=== PATIENT | female | born 1955 | race Caucasian/White ===

== ENCOUNTER 2020-08-03 05:55 | Emergency (ER) | payer OTHER, SELFPAY ==
--- NOTE | ~2020-08-03 | CT_ITS ---
EXAMINATION: CTA chest PE protocol DATE: 08/03/2020 07:00 INDICATION: Chest pain and shortness of breath TECHNIQUE: Computed tomography angiography (CTA) of the chest was performed with 100 mL Omnipaque-350 intravenous contrast timed to evaluate the pulmonary arteries. Coronal maximum intensity projection 3D-reconstructions were created by the technologist. The dose-length product (DLP) was 818.87 mGy-cm. Automated exposure control and iterative reconstruction technique were employed. COMPARISON: 03/29/2019, 11/04/2018 FINDINGS: The pulmonary arteries are well-opacified. No pulmonary embolism is identified. There is m ild atelectasis of the lingula and lower lobes. No focal airspace opacity is identified. No pathologi troy enlarged thoracic lymph nodes are identified. The heart size is normal. There is no pleural eff usion or pneumothorax. The gallbladder is surgically absent. There is chronic mild thickening of the left adrenal gland. There is mild thoracic spondylosis. IMPRESSION: 1. No pulmonary embolism. Reviewed, dictated and finalized at location A. IMPRESSION: 1. No pulmonary embolism.
--- NOTE | ~2020-08-03 | XR_ITS ---
EXAMINATION: XR chest 2V DATE: 08/03/2020 06:18 INDICATION: Chest pain TECHNIQUE: PA and lateral views of the chest are obtained. COMPARISON: 09/01/2015 FINDINGS: There is mild atelectasis of the lung bases. There is no pleural effusion or pneumothorax. The cardiomediastinal silhouette is normal. There is mild thoracic spondylosis. Cholecystectomy clips are noted in the right upper quadrant. IMPRESSION: 1. No acute cardiopulmonary abnormality. Reviewed, dictated and finalized at location A.
--- NOTE | ~2020-08-03 | US_ITS ---
EXAMINATION: US venous doppler [facility] DATE: 08/03/2020 07:16 INDICATION: Left lower limb pain and swelling TECHNIQUE: Ayala scale images without and with compression and Doppler images of the left lower extrem ity veins were obtained. COMPARISON: 11/04/2018 FINDINGS: The left common femoral vein, profunda femoral vein, femoral vein, popliteal vein, peroneal trunk, posterior tibial veins, and greater saphenous vein are patent. IMPRESSION: 1. Patent left lower extremity veins. No evidence of deep venous thrombosis. Reviewed, dictated and finalized at location A.
[2020-08-03 06:06] VITALS: BP 160/89; PULSE 81; RESP 17; TEMP 36.7; O2SAT 96
--- NOTE | 2020-08-03 06:06 | ECG_ITS ---
Measurements Intervals [place] Rate: 80 P: 47 NH: 174 QRS: -11 QRSD: 106 T: 17 QT: 388 QTc: 448 Interpretive Statements SINUS RHYTHM CONSIDER INFERIOR INFARCT, AGE INDETERMINATE BASELINE ARTIFACT- I, II, III, AVR, AVL, AVF, V1-V2 ABNORMAL ECG Electronically Signed On 08-03-2020 8:15:28 CDT by Tyson Ca D.O.
[2020-08-03 06:18] LABS: Basophils Percent Auto 0.2 % (0.2-1.2); Eosinophils Absolute Auto 0.2 K/mm3 (0-0.3); Eosinophils Percent Auto 2.3 % (0-4.4); Hematocrit 39.3 % (37.0-47.0); Hemoglobin 12.9 g/dL (12.0-15.0); Immature Granulocyte Absolute 0.02 K/mm3 (0.00-0.031); Immature Granulocyte Percent A 0.3 % (0-0.5); Lymphocytes Absolute Auto 1.64 K/mm3 (0.9-3.2); Lymphocytes Percent Auto 25.6 % (18.3-44.2); Mean Corpuscular HGB Conc 32.8 g/dl (32-36); Mean Corpuscular Hemoglobin 27.2 pg (26-34); Mean Corpuscular Volume 82.9 fl (80-100); Mean Platelet Volume 10.4 fl (7.4-10.4); Monocytes Absolute Auto 0.6 K/mm3 (0.1-0.6); Monocytes Percent Auto 8.8 % (2.6-8.5); Neutrophils Percent Auto 62.8 % (45.5-73.1); Platelet Count Result 274 k/mm3 (150-375); Red Blood Count 4.74 M/mm3 (4.2-5.4); Red Cell Distribution Width 14.3 % (11.5-14.5); White Blood Count 6.4 K/mm3 (4.5-10.0)
[2020-08-03 06:28] LABS: Partial Thromboplastin Time 24.4 SECONDS (22.3-36.8); Prothrombin Time 12.4 Seconds (11.1-14.7)
[2020-08-03 06:30] LABS: Anion Gap 8 mmol/L (8-16); Blood Urea Nitrogen 16 mg/dL (7-17); Calcium 9.8 mg/dL (8.4-10.2); Carbon Dioxide 25 mmol/L (22-30); Chloride 106 mmol/L (98-107); Estimated CRCL calculation 95 ml/min; Estimated Glomerular Filt Rate > 60; Glucose 114 mg/dL (65-105); Potassium 3.7 mmol/L (3.4-5.0); Sodium 139 mmol/L (137-145)
[2020-08-03 06:42] LABS: Troponin I < 0.012 ng/mL (0.000-0.034)
--- NOTE | 2020-08-03 06:43 | ED.EXTPRO ---
HPI - Extremity Problem General Chief complaint: Extremity Problem,Nontraumatic <Francia Barcenas MD - Last Filed: 08/03/20 21:02> Stated complaint: STATES HAS BLOOD CLOT <Francia Barcenas MD - Last Filed: 08/03/20 21:02> Time Seen by Provider: 08/03/20 06:15 <Francia Barcenas MD - Last Filed: 08/03/20 21:02> Source: patient <Francia Barcenas MD - Last Filed: 08/03/20 21:02> Mode of arrival: ambulatory <Francia Barcenas MD - Last Filed: 08/03/20 21:02> Limitations: no limitations <Francia Barcenas MD - Last Filed: 08/03/20 21:02> History of Present Illness HPI Narrative: This patient is a 64 year old female who presents for evaluation of possible DVT to left leg. PAtient states she developed left lower medial leg pain and swelling 4 days ago after a trip to [place]. This morning she noticed that she had some redness developing to her left leg. She reports history of DVT after a surgery 2 years ago , and this is similar pain. She also reports intermittent midsternal chest tightness that is nonradiating. She reports chronic sob due to asthma. She denies fever or chills. <Francia Barcenas MD - Last Filed: 08/03/20 21:02> Related Data Home medications: Home Medications Medication Instructions Recorded Confirmed albuterol sulfate INHALATION 08/03/20 mometasone-formoterol [Dulera] INHALATION 08/03/20 omeprazole 40 mg PO DAILY 08/03/20 <Francia Barcenas MD - Last Filed: 08/03/20 21:02> Allergies/Adverse reactions: Allergies Allergy/AdvReac Type Severity Reaction Status Date / Time azithromycin Allergy Mild Rash Verified 08/03/20 06:37 Cephalosporins Allergy Mild HIVES Verified 08/03/20 06:37 erythromycin base Allergy Mild Diarrhea Verified 08/03/20 06:37 Penicillins Allergy Mild Hives / Verified 08/03/20 06:37 Red Face Sulfa (Sulfonamide Allergy Mild Rash Verified 08/03/20 06:37 Antibiotics) tetracycline Allergy Mild Rash Verified 08/03/20 06:37 <Francia Barcenas MD - Last Filed: 08/03/20 21:02> Review of Systems Review of Systems: All systems reviewed & are unremarkable except as noted in HPI and below <Francia Barcenas MD - Last Filed: 08/03/20 21:02> Constitutional: Constitutional: Denies chills and Denies fever(s) <Francia Barcenas MD - Last Filed: 08/03/20 21:02> Cardiovascular: Cardiovascular: Reports chest pain <Francia Barcenas MD - Last Filed: 08/03/20 21:02> Respiratory: Respiratory: Denies cough and Reports dyspnea (chronic) <Francia Barcenas MD - Last Filed: 08/03/20 21:02> Gastrointestinal: Gastrointestinal: Denies abdominal pain, Denies nausea and Denies vomiting <Francia Barcenas MD - Last Filed: 08/03/20 21:02> Musculoskeletal: Musculoskeletal: Reports myalgias <Francia Barcenas MD - Last Filed: 08/03/20 21:02> [facility] Past Medical History Medical History: Medical History (Updated 08/03/20 @ 11:07 by Richard Bassett MD) Asthma DVT (deep venous thrombosis) Pulmonary emboli <Francia Barcenas MD - Last Filed: 08/03/20 21:02> Surgical History Surgical History: Surgical History (Updated 08/03/20 @ 06:47 by Francia Barcenas MD) Hx of cholecystectomy <Francia Barcenas MD - Last Filed: 08/03/20 21:02> Family History Family History: Family History (Updated 09/14/18 @ 09:17 by DOCTOR UNKNOWN) Father Family history of allergic disorder, Onset Age: 85 Mother Family history of Parkinson's disease, Onset Age: 88 Sibling Family history of malignant neoplasm of breast <Francia Barcenas MD - Last Filed: 08/03/20 21:02> Social History Social History: Social History Smoking status: Former smoker Smoking end date: 12/01/04 Gender identity (if verbalized by the patient): Female <Francia Barcenas MD - Last Filed: 08/03/20 21:02> Exam Const: General: no acute distress and alert <Francia Barcenas MD - Last Filed: 08/03/20 21:02> O
[2020-08-03 07:03] LABS: CRP 1.3 mg/dL (<1.0)
[2020-08-03 07:15] VITALS: BP 141/88; PULSE 82; RESP 16; O2SAT 97
[2020-08-03 08:00] VITALS: BP 135/72; PULSE 80; RESP 14; O2SAT 97
[2020-08-03 09:00] VITALS: BP 126/77; PULSE 75; RESP 16; O2SAT 98
[2020-08-03 10:00] VITALS: BP 112/72; PULSE 73; RESP 12; O2SAT 98
[2020-08-03 10:38] LABS: Troponin I < 0.012 ng/mL (0.000-0.034)
[2020-08-03 11:15] VITALS: BP 114/79; PULSE 80; RESP 16; O2SAT 98
== END 2020-08-03 11:15 | disposition home or self-care (01) ==
PROVIDERS: General Practice; Emergency Provider Emergency Medicine; PCP Family Medicine
DX: L03.116 Cellulitis of left lower limb (principal); J45.909 Unspecified asthma, uncomplicated; Z86.711 Personal history of pulmonary embolism; Z86.718 Personal history of other venous thrombosis and embolism; Z87.891 Personal history of nicotine dependence
CPT/HCPCS: 36415; 71046; 71275; 80048; 84484; 85025; 85610; 85730; 86140; 93005; 93971; 99284; A9270; Q9967

== ENCOUNTER 2020-08-18 00:29 | Outpatient (CLI) | payer OTHER, SELFPAY ==
[2020-08-18 17:08] LABS: SARS-CoV-2 RNA PCR Negative
== END 2020-08-18 00:30 | disposition home or self-care (01) ==
LOC: ANHCOVIDDT 00:29
PROVIDERS: PCP Family Medicine; Visit Provider Internal Medicine Gastroenterology
DX: Z01.812 Encounter for preprocedural laboratory examination (principal); Z11.59 Encounter for screening for other viral diseases
CPT/HCPCS: 87635; C9803; U0003

== ENCOUNTER 2020-08-21 00:46 | Day surgery (SDC) | payer OTHER, SELFPAY ==
[2020-08-15 09:08] VITALS: BMI 38.7
[2020-08-21 08:17] VITALS: BP 120/80; PULSE 85; RESP 16; TEMP 36.6; O2SAT 98; BMI 38.7
[2020-08-21] MEDS: LACTATED RINGERS 1,000 ML 150 ML IV CONT (08:28)
--- NOTE | 2020-08-21 08:53 | WPDGICN ---
Assessment and Plan Assessment and plan (1) Vomiting: Code(s): R11.10 - Vomiting, unspecified Status: Acute Assessment and Plan: Patient's symptoms appear to be consistent with nocturnal regurgitation. This could represent acid reflux disease. It may also be reflective of use of CPAP mask for sleep apnea. Agree with trial of omeprazole. Anti-reflux measures to include elevating head of bed at night. No late snacks. An EGD will be performed to evaluate more thoroughly. GI Consult Note Consult date/time: 08/21/20 08:53 HPI: Sakina Dye is a 64 year old female Presents for EGD. She has a history of recurrent vomiting for the last several years. Typically will regurgitate at night. She has been treated with omeprazole with no change in symptoms. Dose was recently increased to40mg a day. Patient reports over the last 4 years is used to CPAP mask for sleep apnea. Review of Systems Review of Systems: All systems reviewed & are unremarkable except as noted in HPI and below PMFSH Past Medical History Medical History (Updated 08/21/20 @ 08:55 by Stanley Rodriguez MD) Asthma DVT (deep venous thrombosis) Pulmonary emboli Surgical History Surgical History (Updated 08/03/20 @ 06:47 by Francia Barcenas MD) Hx of cholecystectomy Family History Family History (Updated 09/14/18 @ 09:17 by DOCTOR UNKNOWN) Father Family history of allergic disorder, Onset Age: 85 Mother Family history of Parkinson's disease, Onset Age: 88 Sibling Family history of malignant neoplasm of breast Social History Social History Smoking packs per day: 1 Smoking cigarettes per day: 20.0 Years smoked: 15 Smoking pack-years: 15.00 Smoking status: Former smoker Tobacco type: cigarettes Smoking end date: 12/01/04 Alcohol intake: never Substance use: never Substance use type: does not use Living arrangements: with family Additional living arrangements comments: LIVES WITH SON Gender identity (if verbalized by the patient): Female Spiritual care concerns: No Meds Home Medications and Allergies Home Medications Medication Instructions Recorded Confirmed Type albuterol sulfate 1 puff INHALATION QID PRN 08/03/20 08/15/20 History mometasone-formoterol [Dulera] 1 inh INHALATION BID 08/03/20 08/15/20 History omeprazole 40 mg PO DAILY 08/03/20 08/15/20 History sertraline [Zoloft] 50 mg PO DAILY 08/15/20 08/15/20 History Allergies Allergy/AdvReac Type Severity Reaction Status Date / Time azithromycin Allergy Mild Rash Verified 08/21/20 08:17 Cephalosporins Allergy Mild HIVES Verified 08/21/20 08:17 erythromycin base Allergy Mild Diarrhea Verified 08/21/20 08:17 Penicillins Allergy Mild Hives / Verified 08/21/20 08:17 Red Face Sulfa (Sulfonamide Allergy Mild Rash Verified 08/21/20 08:17 Antibiotics) tetracycline Allergy Mild Rash Verified 08/21/20 08:17 Vital Signs Vital Signs - 24 hr 08/21/20 08:17 Temperature 97.8 F Pulse Rate 85 Respiratory Rate 16 Blood Pressure 120/80 Pulse Oximetry 98 Exam Narrative: Exam Narrative: Physical exam reveals patient to be alert. Vital signs stable. HEENT exam unremarkable lungs are clear to auscultation and percussion. Heart is without murmur or extra sounds. Abdominal exam bowel sounds are present soft nontender with no organomegaly. Digital external rectal exam is normal.
--- NOTE | 2020-08-21 09:25 | WPDANESEPPF ---
Anes - Initial Pre Proc Eval Procedure: Operation Date: 08/21/20 09:30 Proposed Procedures p Esophagogastroduodenoscopy - Stanley Rodriguez MD Date/Time: 08/21/20 09:25 Surgeon: Stanley Rodriguez MD Pre Op Diagnosis: GERD Patient Data Age: 64 Gender: F Height: 5 ft 6 in Weight: 108.9 kg Last Vital Signs Temp 97.8 F 08/21/20 08:17 Pulse 85 08/21/20 08:17 Resp 16 08/21/20 08:17 BP 120/80 08/21/20 08:17 Pulse Ox 98 08/21/20 08:17 Allergies Allergy/AdvReac Type Severity Reaction Status Date / Time azithromycin Allergy Mild Rash Verified 08/21/20 08:17 Cephalosporins Allergy Mild HIVES Verified 08/21/20 08:17 erythromycin base Allergy Mild Diarrhea Verified 08/21/20 08:17 Penicillins Allergy Mild Hives / Verified 08/21/20 08:17 Red Face Sulfa (Sulfonamide Allergy Mild Rash Verified 08/21/20 08:17 Antibiotics) tetracycline Allergy Mild Rash Verified 08/21/20 08:17 Home Medications Medication Instructions Recorded Confirmed Type albuterol sulfate 1 puff INHALATION QID PRN 08/03/20 08/15/20 History mometasone-formoterol [Dulera] 1 inh INHALATION BID 08/03/20 08/15/20 History omeprazole 40 mg PO DAILY 08/03/20 08/15/20 History sertraline [Zoloft] 50 mg PO DAILY 08/15/20 08/15/20 History Patient hx anesthesia problems: none Family hx anesthesia problems: none PMFSH Past Medical History Medical History (Updated 08/21/20 @ 08:55 by Stanley Rodriguez MD) Asthma DVT (deep venous thrombosis) Pulmonary emboli Surgical History Surgical History (Updated 08/03/20 @ 06:47 by Francia Barcenas MD) Hx of cholecystectomy Family History Family History (Updated 09/14/18 @ 09:17 by DOCTOR UNKNOWN) Father Family history of allergic disorder, Onset Age: 85 Mother Family history of Parkinson's disease, Onset Age: 88 Sibling Family history of malignant neoplasm of breast Social History Social History Smoking packs per day: 1 Smoking cigarettes per day: 20.0 Years smoked: 15 Smoking pack-years: 15.00 Smoking status: Former smoker Tobacco type: cigarettes Smoking end date: 12/01/04 Alcohol intake: never Substance use: never Substance use type: does not use Living arrangements: with family Additional living arrangements comments: LIVES WITH SON Gender identity (if verbalized by the patient): Female Spiritual care concerns: No Anes - Eval Final PreProcedure Day of Procedure 08/21/20 09:25 Patient weight: obese Heart: regular rate and rhythm Lungs: clear to auscultation Airway: Mallampati scale class II Neurological: alert and oriented Last oral intake: >/= 8 hours ASA classification: III Emergent: no Anesthetic plan: proceed Anesthesia type and monitoring: general GIVS and standard monitoring Informed Consent: The patient's anesthetic plan and its attendant risks and benefits were discussed with the patient/family/POA. Questions were solicited and answers provided to the satisfaction of the patient/family/POA.
[2020-08-21 09:30] VITALS: BP 124/66; PULSE 74; RESP 16; O2SAT 98
[2020-08-21 09:40] VITALS: BP 110/64; PULSE 75; RESP 16; O2SAT 98
== END 2020-08-21 10:15 | disposition home or self-care (01) ==
PROVIDERS: PCP Family Medicine; Visit Provider Internal Medicine Gastroenterology
PROC: 0DJ08ZZ Inspection of Upper Intestinal Tract, Via Natural or Artificial Opening Endoscopic (ICD-10-PCS; CPT 43235; principal; 2020-08-21 09:30)
DX: R11.10 Vomiting, unspecified (principal); K44.9 Diaphragmatic hernia without obstruction or gangrene; J45.909 Unspecified asthma, uncomplicated; G47.33 Obstructive sleep apnea (adult) (pediatric); Z86.711 Personal history of pulmonary embolism; Z86.718 Personal history of other venous thrombosis and embolism; Z87.891 Personal history of nicotine dependence; E66.9 Obesity, unspecified; Z68.38 Body mass index [BMI] 38.0-38.9, adult
CPT/HCPCS: 43235; J2704; J7120

== ENCOUNTER 2021-07-20 02:54 | Emergency (ER) | payer OTHER, SELFPAY ==
--- NOTE | ~2021-07-20 | XR_ITS ---
EXAMINATION: XR chest 2V 07/20/2021 03:35 INDICATION: Chest tightness PROCEDURE: 2 view chest COMPARISON: Comparison to multiple prior studies sequentially, with oldest reviewed study dated 08/31. FINDINGS: The lungs are clear. The cardiomediastinal silhouette is within normal limits. There are no pleural effusions. There is no pneumothorax suspected. There are cholecystectomy clips. IMPRESSION: 1: NO ACUTE CARDIOPULMONARY DISEASE. Reviewed, dictated and finalized at location A.
--- NOTE | 2021-07-20 02:56 | ECG_ITS ---
Measurements Intervals [place] Rate: 76 P: -3 VT: 154 QRS: -19 QRSD: 89 T: 6 QT: 387 QTc: 435 Interpretive Statements SINUS RHYTHM VOLTAGE CRITERIA FOR LVH BORDERLINE R WAVE PROGRESSION, ANTERIOR LEADS BORDERLINE T WAVE ABNORMALITY- INFERIOR LEADS BORDERLINE ECG Electronically Signed On 07-20-2021 6:06:07 CDT by Tyson Ca D.O.
[2021-07-20 02:57] VITALS: BP 160/77; PULSE 73; RESP 13; TEMP 36.8; O2SAT 98
[2021-07-20 03:49] LABS: Basophils Percent Auto 0.5 % (0.2-1.2); Eosinophils Absolute Auto 0.2 K/mm3 (0-0.3); Eosinophils Percent Auto 2.7 % (0-4.4); Hematocrit 38.8 % (37.0-47.0); Hemoglobin 12.3 g/dL (12.0-15.0); Immature Granulocyte Absolute 0.08 K/mm3 (0.00-0.031); Immature Granulocyte Percent A 1.1 % (0-0.5); Lymphocytes Absolute Auto 2.32 K/mm3 (0.9-3.2); Lymphocytes Percent Auto 31.1 % (18.3-44.2); Mean Corpuscular HGB Conc 31.7 g/dl (32-36); Mean Corpuscular Volume 85.1 fl (80-100); Mean Platelet Volume 9.8 fl (7.4-10.4); Monocytes Absolute Auto 0.6 K/mm3 (0.1-0.6); Monocytes Percent Auto 7.9 % (2.6-8.5); Neutrophils Absolute Auto 4.2 K/mm3 (1.3-6.7); Neutrophils Percent Auto 56.7 % (45.5-73.1); Platelet Count Result 266 k/mm3 (150-375); Red Blood Count 4.56 M/mm3 (4.2-5.4); Red Cell Distribution Width 14.4 % (11.5-14.5); White Blood Count 7.5 K/mm3 (4.5-10.0)
[2021-07-20 03:58] LABS: INR 0.9; Prothrombin Time 11.9 Seconds (11.1-14.7)
[2021-07-20 03:59] LABS: Partial Thromboplastin Time 21.9 SECONDS (22.3-36.8)
[2021-07-20 04:09] VITALS: BP 131/74; PULSE 67; RESP 14; O2SAT 98
[2021-07-20 04:24] LABS: Anion Gap 6 mmol/L (8-16); Blood Urea Nitrogen 22 mg/dL (7-17); Calcium 10.1 mg/dL (8.4-10.2); Carbon Dioxide 24 mmol/L (22-30); Chloride 106 mmol/L (98-107); Estimated CRCL calculation 76 ml/min; Estimated Glomerular Filt Rate > 60; Glucose 112 mg/dL (65-110); Potassium 3.8 mmol/L (3.4-5.0); Sodium 136 mmol/L (137-145)
[2021-07-20 04:25] LABS: Troponin I < 0.012 ng/mL (0.000-0.034)
[2021-07-20 04:53] VITALS: BP 144/78; PULSE 69; RESP 22; O2SAT 98
--- NOTE | 2021-07-20 05:19 | ED.CHESTPAIN ---
HPI - Chest Pain General Chief Complaint: Chest Pain Stated Complaint: chest pain Time Seen by Provider: 07/20/21 03:08 Source: patient History of Present Illness HPI narrative: Patient presents with chest pain. Patient ports that woke her up from sleep around 2 AM today. Her symptoms persisted so she came in for evaluation. Reports pain is a pressure on her chest, constant, no clear aggravating or alleviating factors. Denies associated shortness of breath she denies any nausea vomiting or diaphoresis. She denies any recent fevers, cough, congestion Related Data Home Medications Medication Instructions Recorded Confirmed albuterol sulfate 1 puff INHALATION QID PRN 08/03/20 08/15/20 mometasone-formoterol [Dulera] 1 inh INHALATION BID 08/03/20 08/15/20 omeprazole 40 mg PO DAILY 08/03/20 08/15/20 sertraline [Zoloft] 50 mg PO DAILY 08/15/20 08/15/20 Allergies Allergy/AdvReac Type Severity Reaction Status Date / Time azithromycin Allergy Mild Rash Verified 07/20/21 03:22 Cephalosporins Allergy Mild HIVES Verified 07/20/21 03:22 erythromycin base Allergy Mild Diarrhea Verified 07/20/21 03:22 Penicillins Allergy Mild Hives / Verified 07/20/21 03:22 Red Face Sulfa (Sulfonamide Allergy Mild Rash Verified 07/20/21 03:22 Antibiotics) tetracycline Allergy Mild Rash Verified 07/20/21 03:22 Review of Systems Review of Systems: CONSTITUTIONAL: Denies fever, chills, or sweats. EYES: Denies visual changes, redness, or discharge. ENT: Denies rhinorrhea, congestion, sore throat, or otalgia. CARDIOVASCULAR: Denies palpitations, or edema. RESPIRATORY: Denies cough GASTROINTESTINAL: Denies abdominal pain, nausea, vomiting, or diarrhea. GENITOURINARY: Denies dysuria or hematuria. SKIN: Denies rash or itching. MUSCULOSKELETAL: Denies back pain, joint pain, or myalgia. NEUROLOGIC: Denies headache, numbness, dizziness, or weakness. PSYCHIATRIC: Denies anxiety or depression. All systems reviewed & are unremarkable except as noted in HPI and below PMFSH Past Medical History Medical History Asthma DVT (deep venous thrombosis) Pulmonary emboli Surgical History Surgical History Hx of cholecystectomy Family History Family History Father Family history of allergic disorder, Onset Age: 85 Mother Family history of Parkinson's disease, Onset Age: 88 Sibling Family history of malignant neoplasm of breast Social History Social History Smoking packs per day: 1 Smoking cigarettes per day: 20.0 Years smoked: 15 Smoking pack-years: 15.00 Smoking status: Former smoker Tobacco type: cigarettes Smoking end date: 12/01/04 Alcohol intake: never Substance use: never Substance use type: does not use Additional living arrangements comments: LIVES WITH SON Gender identity (if verbalized by the patient): Female Spiritual care concerns: No Exam Narrative: GENERAL: Well-appearing, well-nourished, and in no acute distress. HEAD: Normocephalic, atraumatic. EYES: PERRLA and EOMI. ENT: Nares clear, no rhinorrhea or epistaxis. Mucous membranes moist. NECK: Supple. No masses. No JVD CHEST: Clear to auscultation. No respiratory distress. No wheezes rales or rhonchi HEART: Regular rate and rhythm. No murmur heard. Normal peripheral pulses. ABDOMEN: Soft, nontender, nondistended, normal active bowel sounds. EXTREMITIES: Normal range of motion. No edema. SKIN: Warm, dry, no rash. NEURO: No focal deficits. Alert and oriented x3. PSYCH: Normal mood and affect. Course Reevaluation(s) Reevaluation #1: Patient resting comfortably reports symptoms are improving Date: 07/20/21 Time: 06:28 Reevaluation #2: Patient resting comfortably results and work-up reviewed with kayla prajapati
[2021-07-20 06:00] VITALS: BP 130/67; PULSE 71; RESP 14; O2SAT 98
[2021-07-20 07:19] LABS: Troponin I < 0.012 ng/mL (0.000-0.034)
== END 2021-07-20 07:35 | disposition home or self-care (01) ==
PROVIDERS: Emergency Provider Emergency Medicine; PCP Internal Medicine
DX: R07.9 Chest pain, unspecified (principal); Z86.718 Personal history of other venous thrombosis and embolism; Z86.711 Personal history of pulmonary embolism; Z87.891 Personal history of nicotine dependence
CPT/HCPCS: 36415; 71046; 80048; 84484; 85025; 85610; 85730; 93005; 99284

== ENCOUNTER → 2021-11-12 11:18 | Outpatient (CLI) | payer OTHER, SELFPAY ==
--- NOTE | ~2021-11-12 | MM_ITS ---
EXAMINATION: MM screening tam BI w winston HISTORY: Screening mammogram, family history of breast cancer in her sister. TECHNIQUE: Craniocaudal and mediolateral oblique 3-D tomosynthesis images were obtained and synthetic 2-D images were generated. CAD analysis was submitted and interpreted. COMPARISON: 04/12/2019, 07/15/2017, 07/02/2017, 03/25/2016 BREAST PARENCHYMAL COMPOSITION: There are scattered areas of fibroglandular density. FINDINGS: There is no evidence of suspicious mass, calcification, or architectural distortion to sugg est malignancy in either breast. There has been no suspicious interval change. IMPRESSION: 1. No mammographic evidence of malignancy. 2. Recommend routine screening mammography in one year. BI-RADS Category 1: Negative Reviewed, dictated and finalized at location A. PER
== END ==
PROVIDERS: PCP Internal Medicine; Visit Provider Obstetrics & Gynecology
DX: Z12.31 Encounter for screening mammogram for malignant neoplasm of breast (principal)
CPT/HCPCS: 77063; 77067

== ENCOUNTER → 2022-02-04 11:03 | Outpatient (CLI) | payer OTHER, SELFPAY ==
--- NOTE | ~2022-02-04 | DEXA_ITS ---
Bone Density Report Name: BYRON EVANS Age: 66 Sex: Female Ethnicity: White Date of : 1955 Indication: postmenopausal; screening for osteoporosis; asthma or emphysema; Referring Provider: Raghu Whaley Study: Bone densitometry was performed. Exam Date: February 04, 2022 Accession number: [id number] Bone Density: Region BMD T-score Z-score Classification AP Spine (L1, L2, L3) 0.886 -1.2 0.5 Osteopenia Femoral Neck (Left) 0.703 -1.3 0.2 Osteopenia Total Hip (Left) 0.866 -0.6 0.6 Normal Femoral Neck (Right) 0.611 -2.1 -0.7 Osteopenia Total Hip (Right) 0.813 -1.1 0.1 Osteopenia Total Hip Mean 0.840 -0.9 0.4 Normal World Health Organization criteria for BMD impression classify patients as: Normal (T-score at or above -1.0), Osteopenia (T-score between -1.0 and -2.5), or Osteoporosis (T-score at or below -2.5). 10-year Fracture Risk(1): Major Osteoporotic Fracture 9.9% Hip Fracture 1.5% Reported Risk Factors: [place] (), Neck BMD=0.611, BMI=37.9 (1) FRAX(R) Version 3.08. Fracture probability calculated for an untreated patient. Fracture probability may be lower if the patient has received treatment. Clinical Information Provided by Patient: Has used the following medications: Vitamin D, Calcium Has the following medical conditions: Asthma or Emphysema Patient maximum height was 66 Menopause Age: 59 Onset of menses at age 15 Number of children 1 Impression: The patient has low bone mass, based on the Right Femoral Neck T-score. The patient has an estimated ten-year risk of hip fracture of 1.5% and an estimated ten-year risk of major fracture of 9.9%, based on the WHO FRAX algorithm. Discussion: BONE DENSITY IS LOW AT ONE OR MORE SKELETAL SITES. This patient's lowest T-score is low at one or more skeletal sites. It meets the World Health Organization's (WHO) criteria for ?low bone mass? (T-score between -1.0 and -2.5). The patient's 10-year risk of fracture as calculated by FRAX is less than the threshold where pharmacological therapy is recommended by the National Osteoporosis Foundation (NOF). However, all treatment decisions require clinical judgment and consideration of individual patient factors, including patient preferences, comorbidities, previous drug use, risk factors not captured in the FRAX model (e.g., frailty, falls, vitamin D deficiency, increased bone turnover, interval significant decline in bone density) and possible under or overestimation of fracture risk by FRAX. The patient should follow a healthful lifestyle (good nutrition with adequate calcium and vitamin D, and appropriate weight-bearing exercise). Follow-Up: Consider repeating this study in 2 to 3 years to reassess this patient's status, or sooner if there is some new clinical indication.
== END ==
PROVIDERS: PCP Internal Medicine; Visit Provider Obstetrics & Gynecology
DX: Z78.0 Asymptomatic menopausal state (principal); M85.88 Other specified disorders of bone density and structure, other site; M85.852 Other specified disorders of bone density and structure, left thigh; M85.851 Other specified disorders of bone density and structure, right thigh
CPT/HCPCS: 77080

== ENCOUNTER 2022-04-06 10:30 | Emergency (ER) | payer OTHER, SELFPAY ==
--- NOTE | 2022-04-06 10:36 | ED.EAR ---
HPI - Ear Problem General Chief complaint: Ear Stated complaint: ear infection Time Seen by Provider: 04/06/22 10:37 Source: patient Mode of arrival: ambulatory Limitations: no limitations History of Present Illness HPI Narrative: Ms. Dye is a 66-year-old female patient presenting to the clinic with complaints of possible ear infection times 3 days. She reports she has had left ear pressure/pain with popping sensation. States that she is also had some postnasal drip with throat irritation. Denies any fever but she has had some chills. Related Data Home Medications Medication Instructions Recorded Confirmed albuterol sulfate 1 puff INHALATION QID PRN 08/03/20 08/15/20 mometasone-formoterol [Dulera] 1 inh INHALATION BID 08/03/20 08/15/20 omeprazole 40 mg PO DAILY 08/03/20 08/15/20 sertraline [Zoloft] 50 mg PO DAILY 08/15/20 08/15/20 Calcium 04/06/22 Vitamin D 04/06/22 Allergies Allergy/AdvReac Type Severity Reaction Status Date / Time azithromycin Allergy Mild Rash Verified 07/20/21 03:22 Cephalosporins Allergy Mild HIVES Verified 07/20/21 03:22 erythromycin base Allergy Mild Diarrhea Verified 07/20/21 03:22 Penicillins Allergy Mild Hives / Verified 07/20/21 03:22 Red Face Sulfa (Sulfonamide Allergy Mild Rash Verified 07/20/21 03:22 Antibiotics) tetracycline Allergy Mild Rash Verified 07/20/21 03:22 Review of Systems Review of Systems: Pertinent positives per HPI. Patient denies any fever, chills, rash, headache, visual changes, dizziness, cough, runny nose, sore throat, shortness of breath, chest pain, palpitations, nausea, vomiting, diarrhea, constipation, abdominal pain, or any urinary issues. [facility] Past Medical History Medical History Asthma DVT (deep venous thrombosis) Pulmonary emboli Surgical History Surgical History Hx of cholecystectomy Family History Family History Father Family history of allergic disorder, Onset Age: 85 Mother Family history of Parkinson's disease, Onset Age: 88 Sibling Family history of malignant neoplasm of breast Social History Social History Smoking packs per day: 1 Smoking cigarettes per day: 20.0 Years smoked: 15 Smoking pack-years: 15.00 Smoking status: Former smoker Tobacco type: cigarettes Smoking end date: 12/01/04 Alcohol intake: never Substance use: never Substance use type: does not use Additional living arrangements comments: LIVES WITH SON Gender identity (if verbalized by the patient): Female Spiritual care concerns: No Comments At the time of my signature, I reviewed and agree with the nursing past medical, surgical, social, and family history. There is no relevant family history pertinent to the patient complaint. Exam Narrative: General: Well-developed, well nourished, in no apparent distress Head: Normocephalic, atraumatic Eyes: Pupils equally round and reactive to light bilaterally, EOM intact, sclera and conjunctive clear, no discharge, lids normal Ears: TMs intact, dull, mostly opaque, mucus behind the TM with mild bulging to the left TM, ear canals clear, no drainage, grossly hearing normal. Nose: Nares patent, no discharge, no inflammation, no sinus tenderness. Mouth: Oropharynx without lesions or masses, good dentition, MMM. Neck: Supple, trachea midline, no enlargement of anterior or posterior cervical nodes, no thyroid masses or goiter palpable. Cardio: Regular rate and rhythm, s1 and s2 normal, no murmur appreciated. Resp: Clear to auscultation bilaterally anteriorly and posteriorly, no rhonchi, rales, wheezing or rubs Course Course Emergency Course: Portions of this record may have been created with voice recognition so
[2022-04-06 10:39] VITALS: BP 130/74; PULSE 83; RESP 16; TEMP 36.8; O2SAT 99
== END 2022-04-06 10:51 | disposition home or self-care (01) ==
PROVIDERS: Emergency Provider Nurse Practitioner Family; PCP Internal Medicine
DX: H66.91 Otitis media, unspecified, right ear (principal); R09.82 Postnasal drip; J45.909 Unspecified asthma, uncomplicated; Z86.718 Personal history of other venous thrombosis and embolism; Z87.891 Personal history of nicotine dependence
CPT/HCPCS: 99213; G0463

== ENCOUNTER 2022-08-10 12:25 | Emergency (ER) | payer OTHER, SELFPAY ==
[2022-08-10 12:37] VITALS: BP 133/71; PULSE 77; RESP 16; TEMP 36.6; O2SAT 98
[2022-08-10 12:39] VITALS: BP 133/71; PULSE 77; RESP 16; TEMP 36.6; O2SAT 98
--- NOTE | 2022-08-10 13:37 | ED.DENTAL ---
HPI - Dental/Oral General Chief complaint: Dental/Oral Stated complaint: tooth infection/dizziness Time Seen by Provider: 08/10/22 13:35 Source: patient, RN notes reviewed and old records reviewed Mode of arrival: ambulatory Limitations: no limitations History of Present Illness HPI Narrative: 66-year-old female who presents to [facility] care with complaints of feeling tired and rundown after having back molar tooth and bone removed from the right side of her upper gum last week. Patient reports that she is having some dental pain , has felt dizzy and has felt fatigue chills and sweats. Patient states that she is concerned of infection not put on any antibiotic. MD Complaint: tooth pain (removal of right upper molar and bone ) Onset (ago): week(s) (1) Treatment prior to arrival: oral analgesic Related Data Home Medications Medication Instructions Recorded Confirmed albuterol sulfate 90 mcg/actuation 1 puff inhalation QID PRN Wheezing 08/03/20 08/10/22 aerosol inhaler mometasone-formoterol HFA 200 1 inh inhalation BID 08/03/20 08/10/22 mcg-5 mcg/actuation aerosol inhaler (Dulera) omeprazole 40 mg capsule,delayed 40 mg PO DAILY 08/03/20 08/10/22 release sertraline 50 mg tablet (Zoloft) 50 mg PO DAILY 08/15/20 08/10/22 Allergies Allergy/AdvReac Type Severity Reaction Status Date / Time azithromycin Allergy Mild Rash Verified 08/10/22 12:34 Cephalosporins Allergy Mild HIVES Verified 08/10/22 12:34 erythromycin base Allergy Mild Diarrhea Verified 08/10/22 12:34 Penicillins Allergy Mild Hives / Verified 08/10/22 12:34 Red Face Sulfa (Sulfonamide Allergy Mild Rash Verified 08/10/22 12:34 Antibiotics) tetracycline Allergy Mild Rash Verified 08/10/22 12:34 Review of Systems Review of Systems: CONSTITUTIONAL: Denies known fever,positive for chills, or sweats. EYES: Denies visual changes, redness, or discharge. ENT: Denies rhinorrhea, congestion, sore throat, or otalgia.positive for pain to right upper jaw where tooth and bone removed. CARDIOVASCULAR: Denies chest pain, palpitations, or edema. RESPIRATORY: Denies cough or dyspnea. GASTROINTESTINAL: Denies abdominal pain, nausea, vomiting, or diarrhea. GENITOURINARY: Denies dysuria or hematuria. SKIN: Denies rash or itching. MUSCULOSKELETAL: Denies back pain, joint pain, or myalgia. NEUROLOGIC: Denies headache, numbness, or weakness, fatigue, some dizziness PSYCHIATRIC: Positive for anxiety or depression. 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 Pulmonary emboli Surgical History Surgical History (Updated 08/12/22 @ 00:51 by Brigette Jeffery NP) H/O spinal fusion 2018 Hx of cholecystectomy Family History Family History Father Family history of allergic disorder, Onset Age: 85 Mother Family history of Parkinson's disease, Onset Age: 88 Sibling Family history of malignant neoplasm of breast Social History Social History Smoking packs per day: 1 Smoking cigarettes per day: 20.0 Years smoked: 15 Smoking pack-years: 15.00 Smoking status: Former smoker Tobacco type: cigarettes Smoking end date: 12/01/04 Alcohol intake: never Substance use: never Substance use type: does not use Additional living arrangements comments: LIVES WITH SON Gender identity (if verbalized by the patient): Female Spiritual care concerns: No Comments At time of signature agree with nursing documentation of past medical surgical, social and family history. There is no relevant family history pertinent to presenting complaint Exam Narrative: GENERAL: ill-appearing, well-nourished, and in no ac
== END 2022-08-10 14:08 | disposition home or self-care (01) ==
PROVIDERS: Emergency Provider Registered Nurse; PCP Internal Medicine
DX: T81.40XA Infection following a procedure, unspecified, initial encounter (principal); K04.7 Periapical abscess without sinus; Z87.891 Personal history of nicotine dependence; J45.909 Unspecified asthma, uncomplicated; Z86.718 Personal history of other venous thrombosis and embolism; Z86.711 Personal history of pulmonary embolism; Z85.828 Personal history of other malignant neoplasm of skin
CPT/HCPCS: 99213; G0463

== ENCOUNTER 2022-08-14 17:33 | Emergency (ER) | payer OTHER, SELFPAY ==
--- NOTE | ~2022-08-14 | XR_ITS ---
EXAMINATION: XR chest 2V Exam Date/Time: 08/14/2022 18:05 CDT HISTORY: palpitations, chest pressure, hx clots Comparison: 07/20/2021. RESULT: Lines, tubes, and devices: Cholecystectomy clips. Lungs and pleura: Subsegmental right basilar atelectasis, otherwise clear. Cardiomediastinal silhouette: Stable. Other: No acute osseous or upper abdominal finding. IMPRESSION: No acute cardiopulmonary process. Reviewed, dictated and finalized at location [facility].
--- NOTE | 2022-08-14 17:34 | ECG_ITS ---
Measurements Intervals [place] Rate: 84 P: 27 MA: 188 QRS: -13 QRSD: 99 T: 15 QT: 376 QTc: 444 Interpretive Statements SINUS RHYTHM FREQUENT VENTRICULAR PREMATURE COMPLEXES DELAYED PRECORDIAL R/S TRANSITION BORDERLINE T WAVE ABNORMALITY- INFERIOR LEADS ABNORMAL ECG COMPARED TO ECG 07/20/2021 03:01:06 FREQUENT VENTRICULAR PREMATURE COMPLEXES NOW PRESENT Electronically Signed On 08-14-2022 21:32:51 CDT by Tyson Ca D.O.
[2022-08-14 17:49] VITALS: BP 153/85; PULSE 84; RESP 16; TEMP 36.8; O2SAT 99
[2022-08-14 17:50] LABS: Basophils Percent Auto 0.5 % (0.2-1.2); Eosinophils Absolute Auto 0.2 K/mm3 (0-0.3); Eosinophils Percent Auto 2.5 % (0-4.4); Hematocrit 41.8 % (37.0-47.0); Immature Granulocyte Absolute 0.02 K/mm3 (0.00-0.031); Immature Granulocyte Percent A 0.3 % (0-0.5); Lymphocytes Percent Auto 28.3 % (18.3-44.2); Mean Corpuscular HGB Conc 31.1 g/dl (32-36); Mean Corpuscular Hemoglobin 26.7 pg (26-34); Mean Platelet Volume 9.8 fl (7.4-10.4); Monocytes Absolute Auto 0.4 K/mm3 (0.1-0.6); Neutrophils Absolute Auto 3.7 K/mm3 (1.3-6.7); Neutrophils Percent Auto 61.4 % (45.5-73.1); Platelet Count Result 264 k/mm3 (150-375); Red Blood Count 4.86 M/mm3 (4.2-5.4); Red Cell Distribution Width 13.9 % (11.5-14.5)
[2022-08-14 18:01] LABS: Prothrombin Time 12.8 Seconds (11.1-14.7)
[2022-08-14 18:02] LABS: Partial Thromboplastin Time 23.8 SECONDS (22.3-36.8)
[2022-08-14 18:08] LABS: Alanine Aminotransferase 19 U/L (6-35); Albumin Level 4.3 g/dL (3.5-5.1); Alkaline Phosphatase 98 U/L (38-126); Anion Gap 13 mmol/L (8-16); Aspartate Amino Transferase 22 U/L (14-36); Bilirubin,Total 0.3 mg/dL (0.2-1.3); Blood Urea Nitrogen 18 mg/dL (7-17); Calcium 9.9 mg/dL (8.4-10.2); Carbon Dioxide 23 mmol/L (22-30); Chloride 104 mmol/L (98-107); Estimated CRCL calculation 82 ml/min; Estimated Glomerular Filt Rate > 60; Glucose 120 mg/dL (65-110); Lipase 78 U/L (23-300); Potassium 3.5 mmol/L (3.4-5.0); Sodium 140 mmol/L (137-145)
[2022-08-14 18:20] LABS: Troponin I < 0.012 ng/mL (0.000-0.034)
--- NOTE | 2022-08-14 21:38 | PC.NURSE ---
Pt LWBS 2134. States my back is killing me I can't wait anylonger I had a spinal fusion.
== END 2022-08-14 21:35 | disposition left against medical advice (07) ==
LOC: ANHED 21:55
PROVIDERS: Emergency Provider Emergency Medicine; PCP Internal Medicine
DX: R07.89 Other chest pain (principal)
CPT/HCPCS: 36415; 71046; 80053; 83690; 84484; 85025; 85610; 85730; 93005; 99199

== ENCOUNTER 2022-08-22 10:10 | Emergency (ER) | payer OTHER, SELFPAY ==
[2022-08-22] VITALS (22 sets, daily range): BP systolic 112–127; BP diastolic 62–85; PULSE 54–78; RESP 12–18; TEMP 36.3; O2SAT 92–99
--- NOTE | ~2022-08-22 | CT_ITS ---
EXAMINATION: CTA chest PE protocol DATE: 08/22/2022 14:12 INDICATION: Chest pain, dyspnea. Elevated d-dimer. History of pulmonary embolism. TECHNIQUE: Computed tomography angiography (CTA) of the chest was performed with 100 mL Omnipaque-350 intravenous contrast timed to evaluate the pulmonary arteries. Coronal maximum intensity projection 3D-reconstructions were created by the technologist. Automated exposure control and iterative reconst ruction technique were employed. Exam dose: 623.03 mGy-cm total exam DLP. COMPARISON: 08/22/2022 PA and lateral chest FINDINGS: There is diagnostic contrast enhancement of the pulmonary arteries and no evidence of pulmo nary embolism. No thoracic aortic aneurysm or dissection. No pericardial or pleural effusion. There is mild discoid atelectasis or scarring in the lower lung zones. No pulmonary consolidation or pulmonary mass lesion is evident. Small sliding hiatal hernia. Normal morphology of the adrenal glands. Status post cholecystectomy. Diverticulosis of left and right colon. Osteopenia. Degenerative spurring of the thoracic and lumbar spine. No suspicious osteolytic or osteo blastic lesions are noted. IMPRESSION: No evidence of pulmonary embolism Bilateral lower lung discoid atelectasis or scarring Status post cholecystectomy Diverticulosis of the colon Reviewed, dictated and finalized at [facility]. Reviewed, dictated and finalized at location B.
--- NOTE | ~2022-08-22 | XR_ITS ---
XR chest 2V DATE: 08/22/2022 11:18 INDICATION: Chest pain for one week. History of asthma. TECHNIQUE: PA and lateral views COMPARISON: 08/14/2022 2 view chest FINDINGS: Heart size is upper limits of normal. No hilar or mediastinal enlargement. No pulmonary inf iltrate or consolidation, pleural effusion or pulmonary vascular congestion or pneumothorax. Status post cholecystectomy Osteopenia Mild thoracolumbar dextroscoliosis. IMPRESSION: No active cardiopulmonary disease Reviewed, dictated and finalized at location B.
--- NOTE | 2022-08-22 10:20 | ECG_ITS ---
Measurements Intervals [place] Rate: 70 P: 53 UT: 192 QRS: -10 QRSD: 88 T: 15 QT: 407 QTc: 440 Interpretive Statements SINUS RHYTHM RSR' IN V1 OR V2, PROBABLY NORMAL VARIANT VOLTAGE CRITERIA FOR LVH BASELINE ARTIFACT- I, II, III, AVR, AVF BORDERLINE ECG COMPARED TO ECG 08/14/2022 17:42:33 NO SIGNIFICANT CHANGES Electronically Signed On 08-22-2022 16:22:19 CDT by Tyson Ca D.O.
[2022-08-22 10:42] LABS: Basophils Percent Auto 0.4 % (0.2-1.2); Eosinophils Percent Auto 0.8 % (0-4.4); Hematocrit 39.7 % (37.0-47.0); Hemoglobin 12.4 g/dL (12.0-15.0); Immature Granulocyte Absolute 0.02 K/mm3 (0.00-0.031); Immature Granulocyte Percent A 0.4 % (0-0.5); Lymphocytes Absolute Auto 1.14 K/mm3 (0.9-3.2); Mean Corpuscular HGB Conc 31.2 g/dl (32-36); Mean Corpuscular Volume 86.5 fl (80-100); Mean Platelet Volume 9.8 fl (7.4-10.4); Monocytes Absolute Auto 0.3 K/mm3 (0.1-0.6); Monocytes Percent Auto 6.6 % (2.6-8.5); Neutrophils Absolute Auto 3.6 K/mm3 (1.3-6.7); Neutrophils Percent Auto 69.8 % (45.5-73.1); Platelet Count Result 218 k/mm3 (150-375); Red Blood Count 4.59 M/mm3 (4.2-5.4); Red Cell Distribution Width 13.7 % (11.5-14.5); White Blood Count 5.2 K/mm3 (4.5-10.0)
[2022-08-22 10:55] LABS: INR 1.1; Prothrombin Time 13.6 Seconds (11.1-14.7)
[2022-08-22 10:56] LABS: Partial Thromboplastin Time 24.9 SECONDS (22.3-36.8)
[2022-08-22 11:00] LABS: Alanine Aminotransferase 20 U/L (6-35); Albumin Level 4.1 g/dL (3.5-5.1); Alkaline Phosphatase 95 U/L (38-126); Anion Gap 8 mmol/L (8-16); Aspartate Amino Transferase 22 U/L (14-36); Bilirubin,Total 0.4 mg/dL (0.2-1.3); Blood Urea Nitrogen 13 mg/dL (7-17); Calcium 8.9 mg/dL (8.4-10.2); Carbon Dioxide 23 mmol/L (22-30); Chloride 107 mmol/L (98-107); Estimated CRCL calculation 82 ml/min; Estimated Glomerular Filt Rate > 60; Glucose 115 mg/dL (65-110); Lipase 49 U/L (23-300); Potassium 3.9 mmol/L (3.4-5.0); Sodium 138 mmol/L (137-145)
[2022-08-22 11:09] LABS: Troponin I < 0.012 ng/mL (0.000-0.034)
--- NOTE | 2022-08-22 11:09 | ED.GENADULT ---
HPI - General Adult General Chief complaint: Chest Pain Stated complaint: chest pain x 1 week Time Seen by Provider: 08/22/22 10:39 History of Present Illness HPI narrative: This is a 66-year-old female presenting ED with chief complaint of chest pain. Patient says she has been having burning chest pain for the last week. It is nonradiating, 5/10 intensity and comes and goes. She has never experienced pain like this before. It is improved when she sits up and is worse when she just wakes up in the morning. She has happened she does get nauseous and becomes diaphoretic. She denies vomiting, fever chills or productive cough. She has a history of PE in 2017 following a prolonged spinal surgery. She took 6 months of anticoagulation. Patient has history of GERD and takes omeprazole. Related Data Home Medications Medication Instructions Recorded Confirmed albuterol sulfate 90 mcg/actuation 1 puff inhalation QID PRN Wheezing 08/03/20 08/10/22 aerosol inhaler mometasone-formoterol HFA 200 1 inh inhalation BID 08/03/20 08/10/22 mcg-5 mcg/actuation aerosol inhaler (Dulera) omeprazole 40 mg capsule,delayed 40 mg PO DAILY 08/03/20 08/10/22 release sertraline 50 mg tablet (Zoloft) 50 mg PO DAILY 08/15/20 08/10/22 Allergies Allergy/AdvReac Type Severity Reaction Status Date / Time azithromycin Allergy Mild Rash Verified 08/22/22 10:27 Cephalosporins Allergy Mild HIVES Verified 08/22/22 10:27 erythromycin base Allergy Mild Diarrhea Verified 08/22/22 10:27 Penicillins Allergy Mild Hives / Verified 08/22/22 10:27 Red Face Sulfa (Sulfonamide Allergy Mild Rash Verified 08/22/22 10:27 Antibiotics) tetracycline Allergy Mild Rash Verified 08/22/22 10:27 Review of Systems Review of Systems: CONSTITUTIONAL: Denies night sweats. EYES: No eye pain ENT: Denies rhinorrhea CARDIOVASCULAR: Denies palpitations RESPIRATORY: Denies hemoptysis GASTROINTESTINAL: Denies hematemesis GENITOURINARY: Denies hematuria. SKIN: Denies rash MUSCULOSKELETAL: Denies myalgia. NEUROLOGIC: Denies weakness. 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 Pulmonary emboli Surgical History Surgical History H/O spinal fusion 2018 Hx of cholecystectomy Family History Family History Father Family history of allergic disorder, Onset Age: 85 Mother Family history of Parkinson's disease, Onset Age: 88 Sibling Family history of malignant neoplasm of breast Social History Social History Smoking packs per day: 1 Smoking cigarettes per day: 20.0 Years smoked: 15 Smoking pack-years: 15.00 Smoking status: Former smoker Tobacco type: cigarettes Smoking end date: 12/01/04 Alcohol intake: never Substance use: never Substance use type: does not use Additional living arrangements comments: LIVES WITH SON Gender identity (if verbalized by the patient): Female Spiritual care concerns: No Exam Narrative: APPEARANCE: No apparent distress. Head atraumatic. EYES: PERRLA/EOMI, NOSE: Normal no drainage NECK: Supple, Trachea midline RESPIRATORY: CTAB, No increased work of breathing. CARDIOVASCULAR: S1S2 appreciated ABDOMINAL: Soft, nontender, nondistended, MUSCULOSKELETAl: No obvious deformities NEURO: Alert. Moving 4/4 extremities SKIN:: Warm, dry. Normal color PSYCHIATRIC: Normal affect Course Vital Signs Vital signs: Vital Signs Temperature 97.3 F L 08/22/22 10:17 Pulse Rate 78 08/22/22 10:17 Respiratory Rate 18 08/22/22 10:17 Blood Pressure 127/76 08/22/22 10:17 Pulse Oximetry 99 08/22/22 10:17 Oxygen Delivery Room Air 08/22/22 10
[2022-08-22] MEDS: FAMOTIDINE 20 MG/2 ML VIAL IV PUSH (11:21)
[2022-08-22] MEDS: MAG HYDROX/AL HYDROX/SIMETH 30 ML UDC PO (11:21)
[2022-08-22 12:54] LABS: NT Pro B Type Natriuretic Pept 81 pg/mL (5-100)
[2022-08-22 14:22] LABS: Troponin I < 0.012 ng/mL (0.000-0.034)
== END 2022-08-22 15:16 | disposition home or self-care (01) ==
PROVIDERS: Emergency Provider Emergency Medicine; PCP Internal Medicine
DX: R07.89 Other chest pain (principal); J45.909 Unspecified asthma, uncomplicated; K21.9 Gastro-esophageal reflux disease without esophagitis; Z86.718 Personal history of other venous thrombosis and embolism; Z86.711 Personal history of pulmonary embolism; Z85.828 Personal history of other malignant neoplasm of skin; Z98.1 Arthrodesis status; Z87.891 Personal history of nicotine dependence
CPT/HCPCS: 36415; 71046; 71275; 80053; 83690; 83880; 84484; 85025; 85380; 85610; 85730; 93005; 96374; 99284; A9270; Q9967

== ENCOUNTER → 2022-10-09 07:52 | Outpatient (CLI) | payer OTHER, SELFPAY ==
--- NOTE | ~2022-10-09 | US_ITS ---
EXAMINATION: US abdomen limited DATE: 10/09/2022 08:28 INDICATION: Epigastric pain and pressure, prior cholecystectomy TECHNIQUE: Multiple grayscale and Doppler ultrasound images of the abdomen were obtained. COMPARISON: None available FINDINGS: The head and body of the pancreas are normal. The pancreatic tail is obscured by bowel gas. The liver is normal with normal echogenicity and echotexture. No surface nodularity. Normal hepatope hector flow in the main portal vein. The gallbladder is surgically absent. The normal common bile duct m easures 4 mm. IMPRESSION: 1. No sonographic correlate for the patient's symptoms. Reviewed, dictated and finalized at location B. [facility]ECT
== END ==
PROVIDERS: PCP Internal Medicine; Visit Provider Registered Nurse
DX: R19.5 Other fecal abnormalities (principal)
CPT/HCPCS: 76705

== ENCOUNTER 2022-10-17 09:03 | Outpatient (CLI) | payer OTHER, SELFPAY ==
[2022-10-17 09:38] LABS: Basophils Percent Auto 0.5 % (0.2-1.2); Eosinophils Absolute Auto 0.1 K/mm3 (0-0.3); Hemoglobin 12.6 g/dL (12.0-15.0); Immature Granulocyte Absolute 0.02 K/mm3 (0.00-0.031); Immature Granulocyte Percent A 0.3 % (0-0.5); Lymphocytes Percent Auto 25.6 % (18.3-44.2); Mean Corpuscular HGB Conc 31.5 g/dl (32-36); Mean Corpuscular Hemoglobin 26.5 pg (26-34); Mean Corpuscular Volume 84.2 fl (80-100); Mean Platelet Volume 9.7 fl (7.4-10.4); Monocytes Absolute Auto 0.4 K/mm3 (0.1-0.6); Monocytes Percent Auto 7.5 % (2.6-8.5); Neutrophils Absolute Auto 3.8 K/mm3 (1.3-6.7); Neutrophils Percent Auto 64.1 % (45.5-73.1); Platelet Count Result 255 k/mm3 (150-375); Red Blood Count 4.75 M/mm3 (4.2-5.4); Red Cell Distribution Width 13.8 % (11.5-14.5); White Blood Count 5.9 K/mm3 (4.5-10.0)
[2022-10-17 09:58] LABS: Anion Gap 12 mmol/L (8-16); Blood Urea Nitrogen 14 mg/dL (7-17); Calcium 9.2 mg/dL (8.4-10.2); Carbon Dioxide 26 mmol/L (22-30); Chloride 102 mmol/L (98-107); Estimated Glomerular Filt Rate > 60; Glucose 110 mg/dL (65-110); Sodium 140 mmol/L (137-145)
== END 2022-10-17 09:04 | disposition home or self-care (01) ==
PROVIDERS: PCP Internal Medicine; Visit Provider Nurse Practitioner Adult Health
DX: R00.2 Palpitations (principal)
CPT/HCPCS: 36415; 80048; 84443; 85025

== ENCOUNTER 2022-10-31 09:38 | Emergency (ER) | payer OTHER, SELFPAY ==
[2022-10-31 09:50] VITALS: BP 128/61; PULSE 76; RESP 16; TEMP 36.6; O2SAT 99
--- NOTE | 2022-10-31 10:36 | ED.URI ---
HPI - URI/Sore Throat General Chief Complaint: Upper Respiratory Infection Stated Complaint: Sore Throat, Cough Time Seen by Provider: 10/31/22 10:36 Source: patient and RN notes reviewed Mode of arrival: ambulatory Limitations: no limitations History of Present Illness HPI Narrative: 66-year-old female presents concern for sore throat, cough, chills, fever that started yesterday. Reports on Friday and Friday she had nausea, vomiting, diarrhea. She has not taken any [id number] medications for her symptoms. Reports sick contacts. Denies nasal congestion, rhinorrhea, ear pain, headache MD elicited complaint: cough and sore throat Related Data Home Medications Medication Instructions Recorded Confirmed albuterol sulfate 90 mcg/actuation 1 puff inhalation QID PRN Wheezing 08/03/20 08/10/22 aerosol inhaler mometasone-formoterol HFA 200 1 inh inhalation BID 08/03/20 08/10/22 mcg-5 mcg/actuation aerosol inhaler (Dulera) omeprazole 40 mg capsule,delayed 40 mg PO DAILY 08/03/20 08/10/22 release sertraline 50 mg tablet (Zoloft) 50 mg PO DAILY 08/15/20 08/10/22 Allergies Allergy/AdvReac Type Severity Reaction Status Date / Time azithromycin Allergy Mild Rash Verified 10/31/22 10:11 Cephalosporins Allergy Mild HIVES Verified 10/31/22 10:11 erythromycin base Allergy Mild Diarrhea Verified 10/31/22 10:11 Penicillins Allergy Mild Hives / Verified 10/31/22 10:11 Red Face Sulfa (Sulfonamide Allergy Mild Rash Verified 10/31/22 10:11 Antibiotics) tetracycline Allergy Mild Rash Verified 10/31/22 10:11 Review of Systems Review of Systems: CONSTITUTIONAL: Reports malaise, chills, sweats, fever. EYES: Denies visual changes, redness, or discharge. ENT: Denies rhinorrhea, congestion, sinus pain, otalgia. Reports sore throat. CARDIOVASCULAR: Denies chest pain, palpitations, or edema. RESPIRATORY: Reports cough. Denies dyspnea. GASTROINTESTINAL: Denies abdominal pain. Denies nausea, vomiting, diarrhea SKIN: Denies rash or itching. MUSCULOSKELETAL: Reports myalgia. NEUROLOGIC: Denies headache. 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 Pulmonary emboli Surgical History Surgical History H/O spinal fusion 2018 Hx of cholecystectomy Family History Family History Father Family history of allergic disorder, Onset Age: 85 Mother Family history of Parkinson's disease, Onset Age: 88 Sibling Family history of malignant neoplasm of breast Social History Social History Smoking packs per day: 1 Smoking cigarettes per day: 20.0 Years smoked: 15 Smoking pack-years: 15.00 Smoking status: Former smoker Tobacco type: cigarettes Smoking end date: 12/01/04 Alcohol intake: never Substance use: never Substance use type: does not use Additional living arrangements comments: LIVES WITH SON Gender identity (if verbalized by the patient): Female Spiritual care concerns: No Comments At time of signature, agree with nursing past medical, surgical, social and family history. There is no relevant family history pertinent to the presenting complaint Exam Narrative: GENERAL: Nontoxic appearing And in no acute distress. HEAD: Normocephalic EYES: PERRLA, conjunctivae clear ENT: Nares clear. Mucous membranes moist. TM pearly morelos with sharp light reflex bilaterally; no tragal tenderness. Oropharynx not erythematous without lesions. Tonsils not enlarged and without exudate, no drooling, no hoarseness, no trismus, uvula midline. NECK: Supple. No lymphadenopathy CHEST: Clear to auscultation, breath sounds eq
== END 2022-10-31 11:15 | disposition home or self-care (01) ==
PROVIDERS: Emergency Provider Nurse Practitioner; PCP Internal Medicine
DX: J06.9 Acute upper respiratory infection, unspecified (principal); Z87.891 Personal history of nicotine dependence; J45.909 Unspecified asthma, uncomplicated; Z86.718 Personal history of other venous thrombosis and embolism; Z86.711 Personal history of pulmonary embolism; Z85.828 Personal history of other malignant neoplasm of skin
CPT/HCPCS: 87081; 87804; 87880; 99213; G0463

== ENCOUNTER 2022-11-14 10:04 | Emergency (ER) | payer OTHER, SELFPAY ==
[2022-11-14 10:11] VITALS: BP 139/72; PULSE 84; RESP 18; TEMP 36.5; O2SAT 100
--- NOTE | 2022-11-14 10:16 | ED.FEMALEGU ---
HPI - Female Genitourinary General Chief complaint: Urogenital-Female Stated complaint: UTI Time Seen by Provider: 11/14/22 10:17 Source: patient and RN notes reviewed Mode of arrival: ambulatory Limitations: no limitations History of Present Illness HPI Narrative: 66 y/o female presented for c/o possible UTI. Endorses 3 days of suprapubic pressure with urination and dark urine color. Denies urgency or frequency, dysuria, or hematuria, flank pain, vaginal discharge, n/v/d/f/c. Endorses recent viral URI about 2 weeks ago. Not taking anything for urinary symptoms. Related Data Home Medications Medication Instructions Recorded Confirmed albuterol sulfate 90 mcg/actuation 1 puff inhalation QID PRN Wheezing 08/03/20 08/10/22 aerosol inhaler mometasone-formoterol HFA 200 1 inh inhalation BID 08/03/20 08/10/22 mcg-5 mcg/actuation aerosol inhaler (Dulera) omeprazole 40 mg capsule,delayed 40 mg PO DAILY 08/03/20 08/10/22 release sertraline 50 mg tablet (Zoloft) 50 mg PO DAILY 08/15/20 08/10/22 rosuvastatin 10 mg tablet (Crestor) 10 mg PO DAILY 11/14/22 11/14/22 Allergies Allergy/AdvReac Type Severity Reaction Status Date / Time azithromycin Allergy Mild Rash Verified 11/14/22 10:17 Cephalosporins Allergy Mild HIVES Verified 11/14/22 10:17 erythromycin base Allergy Mild Diarrhea Verified 11/14/22 10:17 Penicillins Allergy Mild Hives / Verified 11/14/22 10:17 Red Face Sulfa (Sulfonamide Allergy Mild Rash Verified 11/14/22 10:17 Antibiotics) tetracycline Allergy Mild Rash Verified 11/14/22 10:17 Review of Systems Review of Systems: CONSTITUTIONAL: Denies body aches, fever, chills, or sweats. CARDIOVASCULAR: Denies chest pain, palpitations, or edema. RESPIRATORY: Denies cough or dyspnea. GASTROINTESTINAL: Denies abdominal pain, nausea, vomiting, or diarrhea. GENITOURINARY:per HPI SKIN: Denies rash, itching, or wounds. MUSCULOSKELETAL: Denies back pain or myalgia. 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 Pulmonary emboli Surgical History Surgical History H/O spinal fusion 2018 Hx of cholecystectomy Family History Family History Father Family history of allergic disorder, Onset Age: 85 Mother Family history of Parkinson's disease, Onset Age: 88 Sibling Family history of malignant neoplasm of breast Social History Social History Smoking packs per day: 1 Smoking cigarettes per day: 20.0 Years smoked: 15 Smoking pack-years: 15.00 Smoking status: Former smoker Tobacco type: cigarettes Smoking end date: 12/01/04 Alcohol intake: never Substance use: never Substance use type: does not use Additional living arrangements comments: LIVES WITH SON Gender identity (if verbalized by the patient): Female Spiritual care concerns: No Comments At time of signature, I have reviewed and agree with nursing past medical, surgical, social and family history unless otherwise noted. Please see nursing chart for further information. There is no relevant family history pertinent to the presenting complaint Exam Narrative: GENERAL: Well-appearing and in no acute distress. CHEST: Clear to auscultation. HEART: Regular rate and rhythm. ABDOMEN: Soft, generalized tenderness with palpation; nondistended, normal active bowel sounds. No CVA tenderness SKIN: Warm, dry, no rash. NEURO: Alert and oriented x3. Gait steady. PSYCH: Normal affect. Course Course Emergency Course: Patient is aware of diagnosis, understands and agrees to treatment plan. Anticipatory guidance given. Patient agrees to follow-up as directed and is aware of reasons to se
== END 2022-11-14 10:39 | disposition home or self-care (01) ==
PROVIDERS: Emergency Provider Nurse Practitioner Family; PCP Internal Medicine
DX: R10.30 Lower abdominal pain, unspecified (principal); Z87.891 Personal history of nicotine dependence; J45.909 Unspecified asthma, uncomplicated; Z86.718 Personal history of other venous thrombosis and embolism; Z86.711 Personal history of pulmonary embolism; Z85.828 Personal history of other malignant neoplasm of skin
CPT/HCPCS: 81003; 87086; 99213; G0463

== ENCOUNTER 2023-01-13 08:24 | Emergency (ER) | payer OTHER, SELFPAY ==
[2023-01-13 08:33] VITALS: BP 129/68; PULSE 107; RESP 16; TEMP 37.8; O2SAT 98
--- NOTE | 2023-01-13 08:49 | ED.URI ---
HPI - URI/Sore Throat General Chief Complaint: Upper Respiratory Infection Stated Complaint: Sore Throat Time Seen by Provider: 01/13/23 08:49 Source: patient, RN notes reviewed and old records reviewed Mode of arrival: ambulatory Limitations: no limitations History of Present Illness HPI Narrative: 67-year-old female presents to the [facility] with complaints of a sore throat, headache, congestion for 3 days. Has taken Tylenol, no other treatment prior to arrival fever of 100 on arrival. MD elicited complaint: cough, sore throat, rhinorrhea, nasal congestion and sinus pain Onset (ago): day(s) (3) Related Data Home Medications Medication Instructions Recorded Confirmed albuterol sulfate 90 mcg/actuation 1 puff inhalation QID PRN Wheezing 08/03/20 01/13/23 aerosol inhaler mometasone-formoterol HFA 200 1 inh inhalation BID 08/03/20 01/13/23 mcg-5 mcg/actuation aerosol inhaler (Dulera) omeprazole 40 mg capsule,delayed 40 mg PO DAILY 08/03/20 01/13/23 release sertraline 50 mg tablet (Zoloft) 50 mg PO DAILY 08/15/20 01/13/23 rosuvastatin 10 mg tablet (Crestor) 10 mg PO DAILY 11/14/22 01/13/23 Allergies Allergy/AdvReac Type Severity Reaction Status Date / Time azithromycin Allergy Mild Rash Verified 01/13/23 08:29 Cephalosporins Allergy Mild HIVES Verified 01/13/23 08:29 erythromycin base Allergy Mild Diarrhea Verified 01/13/23 08:29 Penicillins Allergy Mild Hives / Verified 01/13/23 08:29 Red Face Sulfa (Sulfonamide Allergy Mild Rash Verified 01/13/23 08:29 Antibiotics) tetracycline Allergy Mild Rash Verified 01/13/23 08:29 Review of Systems Review of Systems: All systems reviewed & are unremarkable except as noted in HPI and below Constitutional: Constitutional: Reports as per HPI and Reports headache(s) Eyes: Eyes: Reports no additional eye complaints ENT: Reports as per HPI, Reports nasal congestion and Reports sore throat Cardiovascular: Cardiovascular: Reports no additional cardiovascular complaints, Denies chest pain and Denies dyspnea Respiratory: Respiratory: Reports no additional respiratory complaints, Denies chest congestion, Denies cough and Denies dyspnea Gastrointestinal: Gastrointestinal: Reports no additional gastrointestinal complaints, Denies abdominal pain, Denies nausea and Denies vomiting Musculoskeletal: Musculoskeletal: Reports no additional musculoskeletal complaints Integumentary/Breasts: Skin/Breast: Reports system reviewed and no additional complaints, except as docu Neurologic: Reports system reviewed and no additional complaints, except as documented Psychiatric: Psychiatric: Reports no additional psychiatric complaints Allergic/Immunologic: Allergic/Immunologic: Reports no additional allergic/immunologic complaints 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 Pulmonary emboli Surgical History Surgical History H/O spinal fusion 2018 Hx of cholecystectomy Family History Family History Father Family history of allergic disorder, Onset Age: 85 Mother Family history of Parkinson's disease, Onset Age: 88 Sibling Family history of malignant neoplasm of breast Social History Social History Smoking packs per day: 1 Smoking cigarettes per day: 20.0 Years smoked: 15 Smoking pack-years: 15.00 Smoking status: Former smoker Tobacco type: cigarettes Smoking end date: 12/01/04 Alcohol intake: never Substance use: never Substance use type: does not use Living arrangements: with family Additional living arrangements comments: LIVES WITH SON Gender identity (if verbalized by the patient): Female Spiritual care lindsey
== END 2023-01-13 09:53 | disposition home or self-care (01) ==
PROVIDERS: Emergency Provider Nurse Practitioner; PCP Internal Medicine
DX: J06.9 Acute upper respiratory infection, unspecified (principal); B34.9 Viral infection, unspecified; Z20.822 Contact with and (suspected) exposure to COVID-19; Z87.891 Personal history of nicotine dependence; J45.909 Unspecified asthma, uncomplicated; Z86.718 Personal history of other venous thrombosis and embolism; Z86.711 Personal history of pulmonary embolism; Z85.828 Personal history of other malignant neoplasm of skin
CPT/HCPCS: 87081; 87426; 87804; 87880; 99213; C9803; G0463

== ENCOUNTER 2023-05-11 08:45 | Emergency (ER) | payer OTHER, SELFPAY ==
[2023-05-11 08:56] VITALS: BP 154/97; PULSE 90; RESP 16; TEMP 36.6; O2SAT 98
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
== END 2023-05-11 09:20 | disposition home or self-care (01) ==
PROVIDERS: Emergency Provider Nurse Practitioner Family; PCP Internal Medicine
DX: R30.0 Dysuria (principal); R60.0 Localized edema; R10.31 Right lower quadrant pain; Z87.891 Personal history of nicotine dependence; J45.909 Unspecified asthma, uncomplicated; Z86.718 Personal history of other venous thrombosis and embolism; Z86.711 Personal history of pulmonary embolism; Z85.828 Personal history of other malignant neoplasm of skin
CPT/HCPCS: 81003; 99212; G0463

== ENCOUNTER → 2023-08-13 09:43 | Outpatient (CLI) | payer OTHER, SELFPAY ==
--- NOTE | ~2023-08-13 | XR_ITS ---
EXAMINATION: XR chest 2V 08/13/2023 10:10 INDICATION: Shortness of breath and cough PROCEDURE: 2 view chest COMPARISON: Comparison to multiple prior studies sequentially, with oldest reviewed study dated 01/2020. FINDINGS: The lungs are clear. The cardiomediastinal silhouette is within normal limits. There are no pleural effusions. There is no pneumothorax suspected. IMPRESSION: 1: NO ACUTE CARDIOPULMONARY DISEASE. Reviewed, dictated and finalized at location B.
== END ==
PROVIDERS: PCP Registered Nurse; Visit Provider Registered Nurse
DX: R05.9 Cough, unspecified (principal); R06.02 Shortness of breath
CPT/HCPCS: 71046

== ENCOUNTER → 2023-09-22 08:46 | Outpatient (CLI) | payer OTHER, SELFPAY ==
--- NOTE | ~2023-09-22 | MR_ITS ---
MRI of the brain Clinical History: Visual disturbance Technique: Axial and sagittal T1-weighted images were acquired. These were followed by axial T2-weigh yasmine, diffusion weighted, gradient, and FLAIR images. Following intravenous administration of 20 cc Mu ltiHance gadolinium, T1-weighted fat-sat imaging was performed in the axial and coronal planes. Findings: No abnormal signal identified in the brain parenchyma. No acute infarct, intracranial hemor rhage, or mass lesion. Orbits are unremarkable. Ventricles and subarachnoid spaces are unremarkable. Paranasal sinuses and m astoid air cells are clear. Major intracranial flow voids are intact. Sagittal midline structures are intact. No abnormal postcontrast enhancement identified. IMPRESSION: Unremarkable exam. Reviewed, dictated and finalized at location M. IMPRESSION: Unremarkable exam.
--- NOTE | ~2023-09-22 | MR_ITS ---
MRA HEAD History: Visual disturbance Technique: 3D time of flight MRA of the head is performed. Findings: The right and left distal vertebral arteries and the basilar and posterior cerebral arterie s are normal. Right and left distal internal carotid arteries and anterior and middle cerebral arteri es are normal. There is no aneurysm, stenosis, or occlusion. Impression: No occlusion, stenosis, or aneurysm. Reviewed, dictated and finalized at location . Impression: No occlusion, stenosis, or aneurysm.
--- NOTE | ~2023-09-22 | MR_ITS ---
MRA NECK History: Visual disturbance Technique: MRA of the neck was performed prior to and following intravenous administration of 20 mL o f MultiHance contrast material. Findings: Both vertebral arteries are patent and show antegrade flow and appear normal. Right and lef t common carotid arteries and the right and left cervical internal carotid arteries and external espinosa tid arteries appear normal. The proximal right internal carotid artery demonstrates 0% stenosis relat haven to the normal distal artery lumen diameter. The proximal left internal carotid artery demonstrate s 0% stenosis relative to the normal distal artery lumen diameter. Impression: No occlusion or stenosis. Reviewed, dictated and finalized at location M. Impression: No occlusion or stenosis.
== END ==
PROVIDERS: PCP Registered Nurse; Visit Provider Internal Medicine Cardiovascular Disease
DX: H53.9 Unspecified visual disturbance (principal); H53.123 Transient visual loss, bilateral
CPT/HCPCS: 70544; 70549; 70553; A9577

== ENCOUNTER 2023-09-24 20:55 | Emergency (ER) | payer OTHER, SELFPAY ==
--- NOTE | ~2023-09-24 | XR_ITS ---
EXAMINATION: XR chest 1V DATE: 09/25/2023 00:44 INDICATION: Nausea. Dizziness. TECHNIQUE: A single frontal view of the chest was obtained. COMPARISON: Chest 2 views 08/13/2023, chest CT 08/22/2022 FINDINGS: There is no pneumonia, pleural effusion, or pneumothorax. The heart size is normal. IMPRESSION: 1. No acute cardiopulmonary disease. Reviewed, dictated and finalized at location E.
--- NOTE | ~2023-09-24 | CT_ITS ---
EXAMINATION: CT brain wo con DATE: 09/25/2023 00:42 INDICATION: Intermittent dizziness. TECHNIQUE: Computed tomography (CT) of the head was performed without intravenous contrast. The mA wa s adjusted according to patient size. Iterative reconstruction technique was employed. The dose-lengt h product was 681.00 mGy-cm. COMPARISON: Brain MRI 09/22/2023 FINDINGS: There is no intracranial hemorrhage, acute infarction, or abnormal intracranial mass lesion . The ventricles are normal in size. There is mild mucosal thickening in the ethmoid sinuses. The orb its are normal. The mastoid air cells are normal. IMPRESSION: 1. Normal brain. Reviewed, dictated and finalized at location E. IMPRESSION: 1. Normal brain.
[2023-09-24 20:57] VITALS: BP 135/72; PULSE 70; RESP 20; TEMP 36.2; O2SAT 98
[2023-09-24 21:43] VITALS: PULSE 93; RESP 18
[2023-09-24 21:44] VITALS: BP 143/82; PULSE 64; RESP 14; O2SAT 98
[2023-09-24 21:45] VITALS: PULSE 62; RESP 13; O2SAT 98
[2023-09-24 21:46] VITALS: BP 135/77; PULSE 66; RESP 13; O2SAT 98
--- NOTE | 2023-09-24 23:28 | ED.DIZZY ---
HPI - Dizziness General Chief Complaint: Dizziness Stated Complaint: dizziness Time Seen by Provider: 09/24/23 22:52 Source: patient Limitations: no limitations History of Present Illness HPI Narrative: Patient presents to the emergency department complaining of intermittent dizziness since approximately 7 AM this morning. Patient knows that the dizziness occurs whenever she lays down and seems to get better when she sits back up, denies dizziness being constant, describes it as a sensation as if she is falling forward and it is only present when she is moving and otherwise does not have any dizziness at rest. Patient notes that it also makes her feel slightly nauseous but denies any vomiting. Patient denies any recent injuries, recent illness, chest pain, shortness of breath, abdominal pain, diarrhea, constipation, dysuria, urinary frequency, urinary urgency, melena, headache, vision, changes, sore throat, nasal congestion, ear, pain, tinnitus. Patient denies any history of vertigo in the past. Patient denies palpitations or history of abnormal heart rhythms. Patient denies any new or changed medication?s. Patient denies any hearing changes. Patient states that she was recently worked up a few days ago with MRIs of her head and neck and evaluation of her carotid. Patient denies any new numbness or weakness. Related Data Home Medications Medication Instructions Recorded Confirmed albuterol sulfate 90 mcg/actuation 1 puff inhalation QID PRN Wheezing 08/03/20 05/11/23 aerosol inhaler mometasone-formoterol HFA 200 1 inh inhalation BID 08/03/20 05/11/23 mcg-5 mcg/actuation aerosol inhaler (Dulera) omeprazole 40 mg capsule,delayed 40 mg PO DAILY 08/03/20 05/11/23 release sertraline 50 mg tablet (Zoloft) 50 mg PO DAILY 08/15/20 05/11/23 rosuvastatin 10 mg tablet (Crestor) 10 mg PO DAILY 11/14/22 05/11/23 Allergies Allergy/AdvReac Type Severity Reaction Status Date / Time azithromycin Allergy Mild Rash Verified 05/11/23 09:07 Cephalosporins Allergy Mild HIVES Verified 05/11/23 09:07 erythromycin base Allergy Mild Diarrhea Verified 05/11/23 09:07 Penicillins Allergy Mild Hives / Verified 05/11/23 09:07 Red Face Sulfa (Sulfonamide Allergy Mild Rash Verified 05/11/23 09:07 Antibiotics) tetracycline Allergy Mild Rash Verified 05/11/23 09:07 Review of Systems Review of Systems: A 10 system review of systems was completed on the patient and is negative except for what is stated in the HPI. Nursing and ancillary documentation was reviewed. 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 Pulmonary emboli Surgical History Surgical History H/O spinal fusion 2018 Hx of cholecystectomy Family History Family History Father Family history of allergic disorder, Onset Age: 85 Mother Family history of Parkinson's disease, Onset Age: 88 Sibling Family history of malignant neoplasm of breast Social History Social History Smoking packs per day: 1 Smoking cigarettes per day: 20.0 Years smoked: 15 Smoking pack-years: 15.00 Smoking status: Former smoker Tobacco type: cigarettes Smoking end date: 12/01/04 Alcohol intake: never Substance use: never Substance use type: does not use Living arrangements: with family Additional living arrangements comments: LIVES WITH SON Gender identity (if verbalized by the patient): Female Spiritual care concerns: No Comments At time of signature, I have reviewed and agree with nursing past medical, surgical, social and family history unless otherwise noted. Please see the nursing chart for further information. Ther
[2023-09-24] MEDS: MECLIZINE HCL 25 MG TABLET PO (23:54)
[2023-09-25 00:19] VITALS: BP 132/80; PULSE 64; RESP 15; O2SAT 100
--- NOTE | 2023-09-25 00:19 | ECG_ITS ---
Measurements Intervals [place] Rate: 62 P: 56 MA: 188 QRS: -1 QRSD: 94 T: 22 QT: 442 QTc: 449 Interpretive Statements SINUS RHYTHM COMPARED TO ECG 08/22/2022 10:26:30 NO SIGNIFICANT CHANGES Electronically Signed On 09-25-2023 12:56:23 CDT by Aurea Holcomb M.D.
[2023-09-25] MEDS: ONDANSETRON INJ 4 MG/2 ML VIAL IV PUSH (01:34)
[2023-09-25] MEDS: SODIUM CHLORIDE 0.9% IV 1,000 ML 999 ML IV CONT (01:34)
[2023-09-25 01:43] LABS: Basophils Percent Auto 0.5 % (0.2-1.2); Eosinophils Absolute Auto 0.1 K/mm3 (0-0.3); Eosinophils Percent Auto 1.5 % (0-4.4); Hematocrit 41.3 % (37.0-47.0); Immature Granulocyte Absolute 0.02 K/mm3 (0.00-0.031); Immature Granulocyte Percent A 0.3 % (0-0.5); Lymphocytes Absolute Auto 2.05 K/mm3 (0.9-3.2); Lymphocytes Percent Auto 33.9 % (18.3-44.2); Mean Corpuscular HGB Conc 31.5 g/dl (32-36); Mean Corpuscular Hemoglobin 26.9 pg (26-34); Mean Corpuscular Volume 85.5 fl (80-100); Mean Platelet Volume 10.1 fl (7.4-10.4); Monocytes Absolute Auto 0.5 K/mm3 (0.1-0.6); Monocytes Percent Auto 7.9 % (2.6-8.5); Neutrophils Absolute Auto 3.4 K/mm3 (1.3-6.7); Neutrophils Percent Auto 55.9 % (45.5-73.1); Platelet Count Result 219 k/mm3 (150-375); Red Blood Count 4.83 M/mm3 (4.2-5.4); Red Cell Distribution Width 14.3 % (11.5-14.5)
[2023-09-25 02:00] LABS: Appearance Urine Clear (Clear); Bacteria Urine None Seen /hpf; Bilirubin Urine Negative (Negative); Blood Urine Negative (Negative); Color Urine Yellow (Yellow); Glucose Urine UA Negative (Negative); Ketones Urine Trace mg/dL (Negative); Leukocyte Esterase Ur 1+ LEU/UL (Negative); Mucus Urine Present /lpf; Nitrate Urine Negative (Negative); Protein Urine Negative (Negative); RBC Urine 0-2 /hpf (0-2); Specific Grav Ur 1.023 (1.001-1.035); Squamous Epithelial Cell Urine Few /hpf (Few); WBC Urine 0-5 /hpf
[2023-09-25 02:01] LABS: Add Urine Microscopic? YES
[2023-09-25 02:06] LABS: Alanine Aminotransferase 26 U/L (6-35); Albumin Level 4.1 g/dL (3.5-5.1); Alkaline Phosphatase 102 U/L (38-126); Anion Gap 9 mmol/L (8-16); Aspartate Amino Transferase 24 U/L (14-36); Bilirubin,Total 0.5 mg/dL (0.2-1.3); Blood Urea Nitrogen 12 mg/dL (7-17); Calcium 9.2 mg/dL (8.4-10.2); Carbon Dioxide 23 mmol/L (22-30); Chloride 105 mmol/L (98-107); Estimated CRCL calculation 84 ml/min; Estimated Glomerular Filt Rate > 60; Glucose 109 mg/dL (65-110); Magnesium 2.2 mg/dL (1.6-2.3); Potassium 3.6 mmol/L (3.4-5.0); Sodium 137 mmol/L (137-145)
[2023-09-25 02:18] LABS: Troponin I < 0.012 ng/mL (0.000-0.034)
[2023-09-25 03:33] LABS: Influenza A QL RT-PCR Negative (Negative); Influenza B QL RT-PCR Negative (Negative); SARS-CoV-2 RNA PCR Negative (Negative)
[2023-09-25 04:13] VITALS: BP 132/87; PULSE 79; RESP 79; O2SAT 98
== END 2023-09-25 04:30 | disposition home or self-care (01) ==
PROVIDERS: Emergency Provider Student in an Organized Health Care Education/Training Program; PCP Registered Nurse
DX: H81.10 Benign paroxysmal vertigo, unspecified ear (principal); Z20.822 Contact with and (suspected) exposure to COVID-19; J45.909 Unspecified asthma, uncomplicated; Z86.718 Personal history of other venous thrombosis and embolism; Z85.828 Personal history of other malignant neoplasm of skin; Z86.711 Personal history of pulmonary embolism; Z87.891 Personal history of nicotine dependence; Z90.49 Acquired absence of other specified parts of digestive tract; Z98.1 Arthrodesis status
CPT/HCPCS: 36415; 70450; 71045; 80053; 81001; 83735; 84484; 85025; 87636; 93005; 96361; 96374; 99284; A9270; J2405; J7030

== ENCOUNTER 2024-03-12 06:04 | Emergency (ER) | payer OTHER, SELFPAY ==
[2024-03-12] VITALS (7 sets, daily range): BP systolic 136–151; BP diastolic 77–87; PULSE 66–86; RESP 13–21; TEMP 36.6; O2SAT 98–100
--- NOTE | ~2024-03-12 | XR_ITS ---
EXAMINATION: XR chest 1V portable DATE: 03/12/2024 06:47 INDICATION: Chest pain. Palpitations. TECHNIQUE: A single frontal view of the chest was obtained. COMPARISON: Chest single view 09/25/2023 FINDINGS: There is mild atelectasis in left lower lung zone. No pleural effusion or pneumothorax. The heart size is normal. IMPRESSION: 1. Mild atelectasis in left lower lung zone. Reviewed, dictated and finalized at location A.
--- NOTE | 2024-03-12 06:17 | ECG_ITS ---
SEE SCANNED COPY FOR CONFIRMED REPORT MTDD
[2024-03-12] MEDS: ASPIRIN 81 MG CHEWABLE TABLET 324 MG PO (06:26)
[2024-03-12 06:27] LABS: Basophils Percent Auto 0.5 % (0.2-1.2); Eosinophils Absolute Auto 0.1 K/mm3 (0-0.3); Eosinophils Percent Auto 1.9 % (0-4.4); Hematocrit 42.8 % (37.0-47.0); Hemoglobin 13.6 g/dL (12.0-15.0); Immature Granulocyte Absolute 0.02 K/mm3 (0.00-0.031); Immature Granulocyte Percent A 0.3 % (0-0.5); Lymphocytes Absolute Auto 2.17 K/mm3 (0.9-3.2); Lymphocytes Percent Auto 33.5 % (18.3-44.2); Mean Corpuscular HGB Conc 31.8 g/dl (32-36); Mean Corpuscular Hemoglobin 27.5 pg (26-34); Mean Corpuscular Volume 86.6 fl (80-100); Mean Platelet Volume 10.3 fl (7.4-10.4); Monocytes Absolute Auto 0.6 K/mm3 (0.1-0.6); Monocytes Percent Auto 9.4 % (2.6-8.5); Neutrophils Absolute Auto 3.5 K/mm3 (1.3-6.7); Neutrophils Percent Auto 54.4 % (45.5-73.1); Platelet Count Result 266 k/mm3 (150-375); Red Blood Count 4.94 M/mm3 (4.2-5.4); Red Cell Distribution Width 13.9 % (11.5-14.5); White Blood Count 6.5 K/mm3 (4.5-10.0)
[2024-03-12 06:39] LABS: Alanine Aminotransferase 20 U/L (6-35); Albumin Level 4.7 g/dL (3.5-5.1); Alkaline Phosphatase 106 U/L (38-126); Anion Gap 9 mmol/L (4-12); Aspartate Amino Transferase 27 U/L (14-36); Bilirubin,Total 0.9 mg/dL (0.2-1.3); Blood Urea Nitrogen 17 mg/dL (7-17); Calcium 10.1 mg/dL (8.4-10.2); Carbon Dioxide 22 mmol/L (22-30); Chloride 108 mmol/L (98-107); Estimated CRCL calculation 72 ml/min; Estimated Glomerular Filt Rate > 60; Glucose 110 mg/dL (65-110); Lipase 71 U/L (23-300); Potassium 4.1 mmol/L (3.4-5.0); Sodium 139 mmol/L (137-145)
[2024-03-12 06:43] LABS: Prothrombin Time 13.3 Seconds (11.1-14.7)
[2024-03-12 06:44] LABS: Partial Thromboplastin Time 25.2 Seconds (22.3-36.8)
[2024-03-12 06:49] LABS: Troponin I < 0.012 ng/mL (0.000-0.034)
--- NOTE | 2024-03-12 07:35 | ED.ARRPALP ---
HPI - Arrhythmia/Palpitations General Chief Complaint: Arrhythmia/Palpitations Stated Complaint: heart feels like missing beats Time Seen by Provider: 03/12/24 07:03 History of Present Illness HPI narrative: Patient is a 68-year-old female who presents to the ER with palpitations. She has history of PVCs. She is to take metoprolol until she developed an allergy. She was then prescribed verapamil but has not started taking it. She reports that she skips a beat and can be almost every other beat at times. When this happens she feels heaviness on her chest. She does report some shortness of breath with exertion that has been longstanding. No pain with deep breath. No fevers chills or sweats. No other changes in medication. Related Data Home Medications Medication Instructions Recorded Confirmed albuterol sulfate 90 mcg/actuation 1 puff inhalation QID PRN Wheezing 08/03/20 05/11/23 aerosol inhaler mometasone-formoterol HFA 200 1 inh inhalation BID 08/03/20 05/11/23 mcg-5 mcg/actuation aerosol inhaler (Dulera) omeprazole 40 mg capsule,delayed 40 mg PO DAILY 08/03/20 05/11/23 release Allergies Allergy/AdvReac Type Severity Reaction Status Date / Time azithromycin Allergy Mild Rash Verified 03/12/24 06:20 Cephalosporins Allergy Mild HIVES Verified 03/12/24 06:20 erythromycin base Allergy Mild Diarrhea Verified 03/12/24 06:20 Penicillins Allergy Mild Hives / Verified 03/12/24 06:20 Red Face Sulfa (Sulfonamide Allergy Mild Rash Verified 03/12/24 06:20 Antibiotics) tetracycline Allergy Mild Rash Verified 03/12/24 06:20 metoprolol Allergy Anaphylaxis Verified 03/12/24 06:20 Review of Systems Review of Systems: All systems reviewed & are unremarkable except as noted in HPI and below Constitutional: Constitutional: Reports no additional constitutional complaints ENT: Reports system reviewed and no additional complaints, except as documented Cardiovascular: Cardiovascular: Denies chest pain, Denies rapid heart rate and Denies radiating jaw, neck or arm pain Comments: Skipped beats Respiratory: Respiratory: Reports no additional respiratory complaints Gastrointestinal: Gastrointestinal: Reports no additional gastrointestinal complaints 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 Pulmonary emboli Surgical History Surgical History H/O spinal fusion 2018 Hx of cholecystectomy Family History Family History Father Family history of allergic disorder, Onset Age: 85 Mother Family history of Parkinson's disease, Onset Age: 88 Sibling Family history of malignant neoplasm of breast Social History Social History Smoking packs per day: 1 Smoking cigarettes per day: 20.0 Years smoked: 15 Smoking pack-years: 15.00 Smoking status: Former smoker Tobacco type: cigarettes Smoking end date: 12/01/04 Alcohol intake: never Substance use: never Substance use type: does not use Living arrangements: with family Additional living arrangements comments: LIVES WITH SON Gender identity (if verbalized by the patient): Female Spiritual care concerns: No Exam Narrative: GENERAL: Anxious/tearful-appearing, well-nourished, and in no acute distress. HEAD: Normocephalic, atraumatic. ENT: Mucous membranes moist. CHEST: Clear to auscultation. No respiratory distress. HEART: Regular rate and rhythm with occasional dropped beat correlating with PVC on monitor. Normal peripheral pulses. ABDOMEN: Soft, nontender, nondistended. EXTREMITIES: Normal range of motion. No edema. SKIN: Warm, dry, no rash. NEURO: Alert and oriented x3.
== END 2024-03-12 09:03 | disposition home or self-care (01) ==
PROVIDERS: Emergency Medicine; Emergency Provider Emergency Medicine; PCP Registered Nurse
DX: I49.3 Ventricular premature depolarization (principal); J45.909 Unspecified asthma, uncomplicated; Z86.711 Personal history of pulmonary embolism; Z86.718 Personal history of other venous thrombosis and embolism; Z87.891 Personal history of nicotine dependence
CPT/HCPCS: 36415; 71045; 80053; 83690; 84484; 85025; 85610; 85730; 93005; 99284; A9270

== ENCOUNTER 2024-03-23 12:01 | Outpatient (CLI) | payer OTHER, SELFPAY ==
--- NOTE | ~2024-03-23 | MM_ITS ---
EXAMINATION: MM screening tam BI w winston HISTORY: Screening mammogram TECHNIQUE: Craniocaudal and mediolateral oblique 3-D tomosynthesis images were obtained and synthetic 2-D images were generated. CAD analysis was submitted and interpreted. COMPARISON: 11/12/2021, 04/12/2019 bilateral screening mammogram examinations BREAST PARENCHYMAL COMPOSITION: There are scattered areas of fibroglandular density. FINDINGS: Also new approximately 6 mm mass in the posterior outer mid left breast. Diagnostic left ma mmogram is recommended, with ultrasound if required. Otherwise there is no evidence of suspicious mass, calcification, or architectural distortion to sugg est malignancy in either breast. There has been no other suspicious interval change. IMPRESSION: 1. Possible new 6 mm mass in posterior outer mid left breast 2. Diagnostic left mammogram is recommended, with ultrasound if required BI-RADS Category 0: Incomplete: Needs additional imaging evaluation. Reviewed, dictated and finalized at location A.
== END 2024-03-23 12:02 ==
LOC: MICIMG 12:02
PROVIDERS: PCP Obstetrics & Gynecology; Visit Provider Obstetrics & Gynecology
DX: Z12.31 Encounter for screening mammogram for malignant neoplasm of breast (principal); R92.8 Other abnormal and inconclusive findings on diagnostic imaging of breast
CPT/HCPCS: 77063; 77067

== ENCOUNTER 2024-04-20 09:40 | Emergency (ER) | payer OTHER, SELFPAY ==
--- NOTE | 2024-04-20 09:42 | ED.URI ---
HPI - URI/Sore Throat General Chief Complaint: Ear Stated Complaint: fever,ear pain,congestion Time Seen by Provider: 04/20/24 09:53 Source: patient, RN notes reviewed and old records reviewed Mode of arrival: ambulatory Limitations: no limitations History of Present Illness HPI Narrative: 68-year-old female presents to the [facility] with reported fevers of 101 nightly since April 03 or . States she has tried [id number] products such as Benadryl and Claritin as well as Tylenol. Reports bilateral ear discomfort, sinus congestion, pain and pressure. Also reports a sore throat. Patient reports only antibiotic that she can take is Keflex. Patient denies having an allergy to that medication. Onset (ago): week(s) (2.5) Related Data Home Medications Medication Instructions Recorded Confirmed albuterol sulfate 90 mcg/actuation 1 puff inhalation QID PRN Wheezing 08/03/20 04/20/24 aerosol inhaler mometasone-formoterol HFA 200 1 inh inhalation BID 08/03/20 04/20/24 mcg-5 mcg/actuation aerosol inhaler (Dulera) omeprazole 40 mg capsule,delayed 40 mg PO DAILY 08/03/20 04/20/24 release aspirin 81 mg tablet,delayed 81 mg PO DAILY 04/20/24 04/20/24 release sertraline 50 mg tablet 50 mg PO DAILY 04/20/24 04/20/24 Allergies Allergy/AdvReac Type Severity Reaction Status Date / Time azithromycin Allergy Mild Rash Verified 04/20/24 09:49 Cephalosporins Allergy Mild HIVES Verified 04/20/24 09:49 erythromycin base Allergy Mild Diarrhea Verified 04/20/24 09:49 Penicillins Allergy Mild Hives / Verified 04/20/24 09:49 Red Face Sulfa (Sulfonamide Allergy Mild Rash Verified 04/20/24 09:49 Antibiotics) tetracycline Allergy Mild Rash Verified 04/20/24 09:49 metoprolol Allergy Anaphylaxis Verified 04/20/24 09:49 Review of Systems Review of Systems: All systems reviewed & are unremarkable except as noted in HPI and below Constitutional: Constitutional: Reports no additional constitutional complaints Eyes: Eyes: Reports no additional eye complaints ENT: Reports as per HPI Cardiovascular: Cardiovascular: Reports no additional cardiovascular complaints, Denies chest pain and Denies dyspnea Respiratory: Respiratory: Reports no additional respiratory complaints, Denies chest congestion, Denies cough and Denies dyspnea Gastrointestinal: Gastrointestinal: Reports no additional gastrointestinal complaints, Denies abdominal pain, Denies nausea and Denies vomiting Musculoskeletal: Musculoskeletal: Reports no additional musculoskeletal complaints Integumentary/Breasts: Skin/Breast: Reports system reviewed and no additional complaints, except as docu Neurologic: Reports system reviewed and no additional complaints, except as documented Psychiatric: Psychiatric: Reports no additional psychiatric complaints Allergic/Immunologic: Allergic/Immunologic: Reports no additional allergic/immunologic complaints 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 Pulmonary emboli Surgical History Surgical History H/O spinal fusion 2018 Hx of cholecystectomy Family History Family History Father Family history of allergic disorder, Onset Age: 85 Mother Family history of Parkinson's disease, Onset Age: 88 Sibling Family history of malignant neoplasm of breast Social History Social History Smoking packs per day: 1 Smoking cigarettes per day: 20.0 Years smoked: 15 Smoking pack-years: 15.00 Smoking status: Former smoker Tobacco type: cigarettes Smoking end date: 12/01/04 Alcohol intake: never Substance use: never Substance use type: does not use Living arrangements: with family
[2024-04-20 09:53] VITALS: BP 134/68; PULSE 75; RESP 16; TEMP 36.6; O2SAT 99
== END 2024-04-20 10:11 | disposition home or self-care (01) ==
PROVIDERS: Emergency Provider Nurse Practitioner; PCP Registered Nurse
DX: J32.9 Chronic sinusitis, unspecified (principal); Z87.891 Personal history of nicotine dependence; J45.909 Unspecified asthma, uncomplicated; Z86.711 Personal history of pulmonary embolism; Z86.718 Personal history of other venous thrombosis and embolism; Z85.828 Personal history of other malignant neoplasm of skin; Z79.82 Long term (current) use of aspirin
CPT/HCPCS: 99213; G0463

== ENCOUNTER 2024-04-22 07:52 | Outpatient (CLI) | payer OTHER, SELFPAY ==
--- NOTE | ~2024-04-22 | MMUS_ITS ---
EXAMINATION: MM diagnostic tam LT w winston, US breast LT limited HISTORY: Follow-up left breast asymmetry TECHNIQUE: Additional 3-D tomosynthesis images of the left breast were performed and synthetic 2-D im ages were generated. CAD analysis was submitted and interpreted. High resolution Limited left breast ultrasound was performed. COMPARISON: Comparison to multiple prior studies sequentially, with oldest reviewed study dated 03/25. BREAST PARENCHYMAL COMPOSITION: Dense: The breasts are heterogeneously dense, which may obscure small masses FINDINGS: MAMMOGRAPHIC FINDINGS: There are persistent asymmetries in the upper outer quadrant of the left breast. No discrete mass is identified. No suspicious architectural distortion or abnormal clustered calcifications. ULTRASOUND: Limited left breast ultrasound: At 2:00, 5 cm from the nipple there is a 7 mm cyst. No suspicious mas ses to suggest malignancy. IMPRESSION: 1. No evidence for malignancy in the left breast. Benign finding. 2. Routine yearly screening mammogram and regular clinical breast examination are recommended. BI-RADS Category 2: Benign finding(s). Reviewed, dictated and finalized at location A. IMPRESSION: 1. No evidence for malignancy in the left breast. Benign finding. 2. Routine yearly screening mammogram and regular clinical breast examination a re recommended. BI-RADS Category 2: Benign finding(s).
== END 2024-04-22 07:53 ==
LOC: MICIMG 07:52
PROVIDERS: PCP Registered Nurse; Visit Provider Obstetrics & Gynecology
DX: R92.8 Other abnormal and inconclusive findings on diagnostic imaging of breast (principal)
CPT/HCPCS: 76642; 77061; 77065; G0279

== ENCOUNTER 2024-07-15 18:20 | Emergency (ER) | payer OTHER, SELFPAY ==
[2024-07-15] VITALS (8 sets, daily range): BP systolic 115–152; BP diastolic 75–92; PULSE 80–93; RESP 14–18; TEMP 36.6–36.8; O2SAT 96–99
--- NOTE | ~2024-07-15 | CT_ITS ---
EXAMINATION: CT brain wo con DATE: 07/15/2024 19:58 INDICATION: Headache, dizziness and weakness TECHNIQUE: Computed tomography (CT) of the head was performed without intravenous contrast. Sagittal and coronal reconstructions were performed. The mA was adjusted according to patient size. Iterative reconstruction technique was employed. The dose-length product was 605.33 mGy-cm. COMPARISON: head CT dated 09/25/2023 FINDINGS: No acute intracranial hemorrhage, acute infarction or abnormal extra axial fluid collection. There is mild scattered white matter hypoattenuation consistent with chronic small vessel ischemic disease. S ymmetric prominence of the sulci consistent with mild age-appropriate diffuse cerebral volume loss. V entricles are normal and symmetric. No mass/mass effect. The orbits, paranasal sinuses and mastoid ai r cells are normal. IMPRESSION: 1. Normal aging brain. No acute intracranial process. Reviewed, dictated and finalized at location A.
--- NOTE | ~2024-07-15 | XR_ITS ---
EXAMINATION: XR chest 2V DATE: 07/15/2024 18:51 INDICATION: Nausea and weakness TECHNIQUE: PA and lateral views of the chest were obtained. COMPARISON: Chest radiograph dated 03/12/[address] dated 08/22/2022 FINDINGS: Unchanged mild linear and streaky atelectasis in the superior segment of the left lower lobe, the eleno gula and basilar right lower lobe. No new airspace opacities, pulmonary edema, pleural effusion or pn eumothorax. The cardiomediastinal silhouette is normal. Mild to moderate thoracic spondylosis with ch ronic mild anterior wedging of a few mid and lower thoracic vertebral bodies. Cholecystectomy clips i n the upper abdomen. IMPRESSION: 1. Stable appearance of bilateral mild scattered chronic discoid atelectasis/scarring. No acute cardi opulmonary disease. Reviewed, dictated and finalized at location A. IMPRESSION: 1. Stable appearance of bilateral mild scattered chronic discoid atelectasis/sc arring. No acute cardiopulmonary disease.
--- NOTE | 2024-07-15 18:24 | ECG_ITS ---
Test Date: 2024-07-15 18:26:06 Measurements Intervals Mobile Rate: 93 P: 55 FL: 179 QRS: -17 QRSD: 90 T: 42 QT: 338 QTc: 422 Interpretive Statements SINUS RHYTHM BORDERLINE LEFT AXIS DEVIATION POOR R-WAVE PROGRESSION ABNORMAL ELECTROCARDIOGRAM No previous ECG available for comparison Electronically Signed On 07-16-2024 14:53:17 CDT by Neil Salgado M.D.
--- NOTE | 2024-07-15 18:43 | ED.WEAKNESS ---
HPI - Weakness General Chief complaint: Weakness Stated complaint: weakness/palpitations Time Seen by Provider: 07/15/24 18:41 Source: patient Mode of arrival: ambulatory Limitations: no limitations History of Present Illness HPI Narrative: Patient is a 68 y/o female who presents to the ED with multiple complaints. Patient reports she has been feeling increasingly weak over the last few days. She reports weakness mostly in her legs. Denies focal weakness or numbness. She also reports having sweating of her face over the last 4-5 days, intermittent heart palpitations, intermittent nausea, intermittent headaches, lightheadedness over the last few days. States she is worried about her kidneys. States she has been out of town recently and has not had time to follow-up with her doctor. She has been eating and drinking normally. She denies chest pain, shortness breath, vision changes, slurred speech, confusion, abdominal pain. Related Data Home Medications Medication Instructions Recorded Confirmed albuterol sulfate 90 mcg/actuation 1 puff inhalation QID PRN Wheezing 08/03/20 04/20/24 aerosol inhaler mometasone-formoterol HFA 200 1 inh inhalation BID 08/03/20 04/20/24 mcg-5 mcg/actuation aerosol inhaler (Dulera) omeprazole 40 mg capsule,delayed 40 mg PO DAILY 08/03/20 04/20/24 release aspirin 81 mg tablet,delayed 81 mg PO DAILY 04/20/24 04/20/24 release sertraline 50 mg tablet 50 mg PO DAILY 04/20/24 04/20/24 Allergies Allergy/AdvReac Type Severity Reaction Status Date / Time azithromycin Allergy Mild Rash Verified 07/15/24 18:33 Cephalosporins Allergy Mild HIVES Verified 07/15/24 18:33 erythromycin base Allergy Mild Diarrhea Verified 07/15/24 18:33 Penicillins Allergy Mild Hives / Verified 07/15/24 18:33 Red Face Sulfa (Sulfonamide Allergy Mild Rash Verified 07/15/24 18:33 Antibiotics) tetracycline Allergy Mild Rash Verified 07/15/24 18:33 metoprolol Allergy Anaphylaxis Verified 07/15/24 18:33 verapamil Allergy Hives Verified 07/15/24 18:33 Review of Systems Review of Systems: All systems reviewed & are unremarkable except as noted in HPI. 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 Pulmonary emboli Surgical History Surgical History H/O spinal fusion 2018 Hx of cholecystectomy Family History Family History Father Family history of allergic disorder, Onset Age: 85 Mother Family history of Parkinson's disease, Onset Age: 88 Sibling Family history of malignant neoplasm of breast Social History Social History Smoking packs per day: 1 Smoking cigarettes per day: 20.0 Years smoked: 15 Smoking pack-years: 15.00 Smoking status: Former smoker Tobacco type: cigarettes Smoking end date: 12/01/04 Alcohol intake: never Substance use: never Substance use type: does not use Living arrangements: with family Additional living arrangements comments: LIVES WITH SON Gender identity (if verbalized by the patient): Female Spiritual care concerns: No Exam Narrative: GENERAL: Well appearing, obese with BMI of 38.0, non-toxic, in no acute distress. HEAD: Normocephalic, atraumatic. EYES: PERRL/EOMI, conjunctiva clear. No nystagmus ENT: TMs clear bilaterally, no cerumen impaction RESPIRATORY: Airway patent, respirations nonlabored. Clear to auscultation bilaterally, no rales, rhonchi, wheezing. CARDIOVASCULAR: Regular rate and rhythm without murmurs, rubs, or gallops. ABDOMINAL: Soft, nontender, nondistended. Normoactive BS. MUSCULOSKELETAL: Move
[2024-07-15 18:46] LABS: Basophils Percent Auto 0.5 % (0.2-1.2); Eosinophils Absolute Auto 0.1 K/mm3 (0-0.3); Eosinophils Percent Auto 1.5 % (0-4.4); Hematocrit 44.3 % (37.0-47.0); Hemoglobin 14.4 g/dL (12.0-15.0); Immature Granulocyte Absolute 0.02 K/mm3 (0.00-0.031); Immature Granulocyte Percent A 0.3 % (0-0.5); Lymphocytes Absolute Auto 2.22 K/mm3 (0.9-3.2); Lymphocytes Percent Auto 30.3 % (18.3-44.2); Mean Corpuscular HGB Conc 32.5 g/dl (32-36); Mean Corpuscular Hemoglobin 28.1 pg (26-34); Mean Corpuscular Volume 86.4 fl (80-100); Mean Platelet Volume 10.1 fl (7.4-10.4); Monocytes Absolute Auto 0.6 K/mm3 (0.1-0.6); Monocytes Percent Auto 7.7 % (2.6-8.5); Neutrophils Absolute Auto 4.4 K/mm3 (1.3-6.7); Neutrophils Percent Auto 59.7 % (45.5-73.1); Platelet Count Result 296 k/mm3 (150-375); Red Blood Count 5.13 M/mm3 (4.2-5.4); Red Cell Distribution Width 13.6 % (11.5-14.5); White Blood Count 7.3 K/mm3 (4.5-10.0)
[2024-07-15 18:54] LABS: Alanine Aminotransferase 17 U/L (6-35); Albumin Level 4.5 g/dL (3.5-5.1); Alkaline Phosphatase 99 U/L (38-126); Anion Gap 13 mmol/L (4-12); Aspartate Amino Transferase 23 U/L (14-36); Bilirubin,Total 0.6 mg/dL (0.2-1.3); Blood Urea Nitrogen 17 mg/dL (7-17); Calcium 9.8 mg/dL (8.4-10.2); Carbon Dioxide 22 mmol/L (22-30); Chloride 104 mmol/L (98-107); Estimated CRCL calculation 72 ml/min; Estimated Glomerular Filt Rate > 60; Glucose 118 mg/dL (65-110); Potassium 3.9 mmol/L (3.4-5.0); Sodium 139 mmol/L (137-145)
[2024-07-15] MEDS: SODIUM CHLORIDE 0.9% IV 1,000 ML 999 ML IV CONT ×2 (19:42)
[2024-07-15 19:43] LABS: Add Urine Microscopic? NO; Appearance Urine Clear (Clear); Bilirubin Urine Negative (Negative); Blood Urine Negative (Negative); Color Urine Yellow (Yellow); Glucose Urine UA Negative (Negative); Ketones Urine Negative (Negative); Leukocyte Esterase Ur Negative LEU/UL (Negative); Nitrate Urine Negative (Negative); Protein Urine Negative (Negative); Specific Grav Ur 1.024 (1.001-1.035); Urobilinogen Urine 0.2 mg/dL (<2.0)
== END 2024-07-15 21:26 | disposition home or self-care (01) ==
PROVIDERS: Emergency Medicine; Emergency Provider Physician Assistant; PCP Registered Nurse
DX: E86.0 Dehydration (principal); I95.1 Orthostatic hypotension; R42 Dizziness and giddiness; R53.1 Weakness; R94.31 Abnormal electrocardiogram [ECG] [EKG]; J45.909 Unspecified asthma, uncomplicated; Z86.718 Personal history of other venous thrombosis and embolism
CPT/HCPCS: 36415; 70450; 71046; 80053; 81003; 83735; 84443; 85025; 93005; 96360; 99284; J7030

== ENCOUNTER 2024-11-23 11:23 | Emergency (ER) | payer OTHER, SELFPAY ==
--- NOTE | ~2024-11-23 | XR_ITS ---
EXAMINATION: XR chest 2V DATE: 11/23/2024 11:48 INDICATION: Cough. TECHNIQUE: Frontal and lateral views of the chest were obtained. COMPARISON: Chest 2 views 07/15/2024, chest CT 08/22/2022 FINDINGS: There is mild atelectasis in left lower lung zone. No pleural effusion or pneumothorax. The heart size is normal. Surgical clips in the right upper quadrant are likely from cholecystectomy. IMPRESSION: 1. Mild atelectasis in left lower lung zone. Reviewed, dictated and finalized at location A. AR PUMPER
[2024-11-23 11:25] VITALS: BP 173/77; PULSE 100; RESP 17; TEMP 36.1; O2SAT 98
--- NOTE | 2024-11-23 11:43 | ED_ITS ---
HPI - URI/Sore Throat General Chief Complaint: Upper Respiratory Infection Stated Complaint: URI symptoms Time Seen by Provider: 11/23/24 11:34 Source: patient Mode of arrival: ambulatory Limitations: no limitations History of Present Illness HPI Narrative: This is a 69-year-old female who presents to the ED for chief complaint of productive cough with clear sputum x5 days. Reports associated congestion and feeling of fullness in the ears. States that she has had multiple family members sick including of children with similar symptoms. There has been a lot of people with cough. Denies associated fevers, nausea, vomiting. Related Data Home Medications ?Medication ?Instructions ?Recorded ?Confirmed ?Last Taken ?Type albuterol sulfate 90 mcg/actuation 1 puff inhalation QID PRN Wheezing 08/03/20 04/20/24 08/20/20 History aerosol inhaler mometasone-formoterol HFA 200 1 inh inhalation BID 08/03/20 04/20/24 08/20/20 History mcg-5 mcg/actuation aerosol inhaler (Dulera) omeprazole 40 mg capsule,delayed 40 mg PO DAILY 08/03/20 04/20/24 08/20/20 History release aspirin 81 mg tablet,delayed 81 mg PO DAILY 04/20/24 04/20/24 Unknown History release sertraline 50 mg tablet 50 mg PO DAILY 04/20/24 04/20/24 Unknown History Allergies Allergy/AdvReac Type Severity Reaction Status Date / Time azithromycin Allergy Mild Rash Verified 11/23/24 11:24 Cephalosporins Allergy Mild HIVES Verified 11/23/24 11:24 erythromycin base Allergy Mild Diarrhea Verified 11/23/24 11:24 Penicillins Allergy Mild Hives / Verified 11/23/24 11:24 Red Face Sulfa (Sulfonamide Allergy Mild Rash Verified 11/23/24 11:24 Antibiotics) tetracycline Allergy Mild Rash Verified 11/23/24 11:24 metoprolol Allergy Anaphylaxis Verified 11/23/24 11:24 verapamil Allergy Hives Verified 11/23/24 11:24 Review of Systems Review of Systems: All systems as dictated in HPI [facility] Past Medical History Medical History Asthma DVT (deep venous thrombosis) 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 Pulmonary emboli Surgical History Surgical History H/O spinal fusion 2018 Hx of cholecystectomy Family History Family History Father Family history of allergic disorder, Onset Age: 85 Mother Family history of Parkinson's disease, Onset Age: 88 Sibling Family history of malignant neoplasm of breast Social History Social History Smoking packs per day: 1 Smoking cigarettes per day: 20.0 Years smoked: 15 Smoking pack-years: 15.00 Smoking status: Former smoker Tobacco type: cigarettes Smoking end date: 12/01/04 Alcohol intake: never Substance use: never Substance use type: does not use Living arrangements: with family Additional living arrangements comments: LIVES WITH SON Gender identity (if verbalized by the patient): Female Spiritual care concerns: No Exam Narrative: GENERAL: Well-appearing, well-nourished, and in no acute distress. HEAD: Normocephalic, atraumatic. EYES: PERRLA and EOMI. ENT: Nares clear, no rhinorrhea or epistaxis. Mucous membranes moist. Oropharynx without tonsillar hypertrophy exudate or other lesions. NECK: Supple. No adenopathy or masses. CHEST: No respiratory distress. Clear to auscultation. No wheezes rales or rhonchi HEART: Regular rate and rhythm. No murmur heard. Normal peripheral pulses. ABDOMEN: Soft, nontender, nondistended, normal active bowel sounds. MSK: Normal range of motion. No edema. SKIN: Warm, dry, no rash. NEURO: Alert and oriented x4. No focal deficits. PSYCH: Normal mood and affect. Course Vital Signs Vital signs: Vital Signs Temperature 97 F L 11/23/24 11:25 Pulse Rate 100 11/23/24 11:25 Respiratory Rate 17 11/23/24 11:25 Blood Pressure 173/77 H 11/23/24 11:25 Pulse Oximetry 98 11/23/24 11:25 Oxygen Delivery Room Air 11/23/24 11:25 Temperature 97 F L 11/23/24 11:25 Pulse Rate 100 11/23/24 11:25 Respiratory Rate 17 11/23/24 11:25 Blood Pressure 173/77 H 11/23/24 11:25 Pulse Oximetry 98 11/23/24 11:25 Oxygen Delivery Room Air 11/23/24 11:33 MDM - URI/Sore Throat MDM Narrative Medical decision making narrative: This is a 69-year-old female who presents to the ED for chief complaint of cough and congestion. Vitals are normal. Respiratory exam intact. Viral swabs are positive for RSV. Chest x-ray is showing some atelectasis but no focal infiltrate. Patient will be discharged in stable condition. Supportive measures discussed and return precautions given. Patient is understanding and agreeable with plan for discharge with PCP follow-up. Lab Data Labs: Lab Results 11/23/24 Range/Units 11:30 Influenza A (RT-PCR) Negative (Negative) Influenza B (RT-PCR) Negative (Negative) RSV (RT-PCR) Positive A (Negative) SARS-CoV-2 RNA (RT-PCR) Negative (Negative) Discharge Plan Discharge Clinical Impression: Upper respiratory infection, Respiratory syncytial virus (RSV) Patient Disposition: Home, Self-Care Condition: Stable Instructions: Antibiotic Form Additional Instructions: Your exam today shows evidence of RSV. This is a virus that does not require antibiotics. This will self resolve over the next several days. Please follow-up with PCP. Make sure that you are staying well hydrated and taking your normal medications. If you have any new or worsening symptoms please return to the ER for further evaluation. Patient Language: Citizen Of [place] Prescriptions: No Action aspirin 81 mg tablet,delayed release (DR/EC) 81 mg PO DAILY sertraline 50 mg tablet 50 mg PO DAILY cephalexin 500 mg capsule 500 mg PO Q8H 7 Days Qty: 21 0RF omeprazole 40 mg capsule,delayed release(DR/EC) 40 mg PO DAILY albuterol sulfate 90 mcg/actuation HFA aerosol inhaler 1 puff INHALATION QID PRN (Reason: Wheezing) Dulera 200-5 mcg/actuation HFA aerosol inhaler 1 inh INHALATION BID Follow-up/Referrals: Nubia,SHAWN Gonzalez [Primary Care Provider] - Time of Disposition: 12:20
[2024-11-23 12:11] LABS: Influenza A QL RT-PCR Negative (Negative); Influenza B QL RT-PCR Negative (Negative); RSV RNA, RT-PCR Positive (Negative); SARS-CoV-2 RNA PCR Negative (Negative)
== END 2024-11-23 12:34 | disposition home or self-care (01) ==
PROVIDERS: Emergency Provider Physician Assistant; PCP Registered Nurse
DX: J06.9 Acute upper respiratory infection, unspecified (principal); B97.4 Respiratory syncytial virus as the cause of diseases classified elsewhere; Z20.822 Contact with and (suspected) exposure to COVID-19; J45.909 Unspecified asthma, uncomplicated; Z98.1 Arthrodesis status; Z86.718 Personal history of other venous thrombosis and embolism; Z86.711 Personal history of pulmonary embolism; Z85.828 Personal history of other malignant neoplasm of skin; Z87.891 Personal history of nicotine dependence; Z90.49 Acquired absence of other specified parts of digestive tract
CPT/HCPCS: 71046; 87637; 99283

== ENCOUNTER 2025-01-04 10:45 | Emergency (ER) | payer OTHER, SELFPAY ==
[2025-01-04 10:56] VITALS: BP 135/72; PULSE 91; RESP 16; TEMP 36.8; O2SAT 98
--- NOTE | 2025-01-04 11:09 | ED.URI ---
HPI - URI/Sore Throat General Chief Complaint: Upper Respiratory Infection Stated Complaint: lght headed,sore throat Time Seen by Provider: 01/04/25 11:41 Source: patient and RN notes reviewed Mode of arrival: ambulatory Limitations: no limitations History of Present Illness HPI Narrative: 69 year old female presents with concern for 2-3 day history of sinus congestion, drainage, headache, sore throat, cough, mild nausea and feeling lightheaded. She reports she has taken NyQuil and ibuprofen. 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 MD elicited complaint: cough and sore throat Related Data Home Medications ?Medication ?Instructions ?Recorded ?Confirmed ?Last Taken ?Type albuterol sulfate 90 mcg/actuation 1 puff inhalation QID PRN Wheezing 08/03/20 04/20/24 08/20/20 History aerosol inhaler mometasone-formoterol HFA 200 1 inh inhalation BID 08/03/20 04/20/24 08/20/20 History mcg-5 mcg/actuation aerosol inhaler (Dulera) omeprazole 40 mg capsule,delayed 40 mg PO DAILY 08/03/20 04/20/24 08/20/20 History release sertraline 50 mg tablet 50 mg PO DAILY 04/20/24 04/20/24 Unknown History albuterol sulfate 2.5 mg/3 mL mg 01/04/25 Unknown History (0.083 %) solution for nebulization Allergies Allergy/AdvReac Type Severity Reaction Status Date / Time azithromycin Allergy Mild Rash Verified 01/04/25 11:08 Cephalosporins Allergy Mild HIVES Verified 01/04/25 11:08 erythromycin base Allergy Mild Diarrhea Verified 01/04/25 11:08 Penicillins Allergy Mild Hives / Verified 01/04/25 11:08 Red Face Sulfa (Sulfonamide Allergy Mild Rash Verified 01/04/25 11:08 Antibiotics) tetracycline Allergy Mild Rash Verified 01/04/25 11:08 metoprolol Allergy Anaphylaxis Verified 01/04/25 11:08 verapamil Allergy Hives Verified 01/04/25 11:08 Review of Systems Review of Systems: CONSTITUTIONAL: Denies malaise, chills, sweats, or fever. EYES: Denies visual changes, redness, or discharge. ENT: Reports rhinorrhea, congestion, and sore throat. CARDIOVASCULAR: Denies chest pain, palpitations, or edema. RESPIRATORY: Reports cough. Denies dyspnea. GASTROINTESTINAL: Denies abdominal pain, vomiting, diarrhea. Reports nausea SKIN: Denies rash or itching. MUSCULOSKELETAL: Reports myalgia. NEUROLOGIC: Reports headache. 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 Pulmonary emboli Surgical History Surgical History H/O spinal fusion 2018 Hx of cholecystectomy Family History Family History Father Family history of allergic disorder, Onset Age: 85 Mother Family history of Parkinson's disease, Onset Age: 88 Sibling Family history of malignant neoplasm of breast Social History Social History Smoking packs per day: 1 Smoking cigarettes per day: 20.0 Years smoked: 15 Smoking pack-years: 15.00 Smoking status: Former smoker Tobacco type: cigarettes Smoking end date: 12/01/04 Alcohol intake: never Substance use: never Substance use type: does not use Living arrangements: with family Additional living arrangements comments: LIVES WITH SON Gender identity (if verbalized by the patient): Female Spiritual care concerns: No Comments At time of signature, agree with nursing past medical, surgical, social and family history. There is no relevant family history pertinent to the presenting complaint Exam Narrative: GENERAL: Well-appearing, well-nourished, and in no acute distress. HEAD: Normocephalic EYES: PERRLA, conjunctivae clear ENT: Nares clear. Mucous membranes moist. TM pearly morelos with sharp light reflex bilaterally; no tragal tenderness. Oropharynx not erythematous without lesions. Tonsils not enlarged and without exudate, no drooling, no hoarseness, no trismus, uvula midline. NECK: Supple. No lymphadenopathy CHEST: Clear to auscultation, breath sounds equal. No wheezing, rhonchi, rales, or stridor. No respiratory distress, speaks in full sentences. HEART: Regular rate and rhythm. No murmur heard. SKIN: Warm, dry, no rash. NEURO: Alert and oriented x3. PSYCH: Normal mood and affect Course Course Emergency Course: Patient is aware of diagnosis, understands and agrees to treatment plan. Anticipatory guidance given. Patient agrees to follow-up as directed and is aware of reasons to seek care at the emergency department. Portions of this record may have been created with voice recognition software Level of Care: Express Care Visit Vital Signs Vital signs: Vital Signs Temperature 98.3 F 01/04/25 10:56 Pulse Rate 91 01/04/25 10:56 Respiratory Rate 16 01/04/25 10:56 Blood Pressure 135/72 01/04/25 10:56 Pulse Oximetry 98 01/04/25 10:56 Oxygen Delivery Room Air 01/04/25 10:56 Temperature 98.3 F 01/04/25 10:56 Pulse Rate 91 01/04/25 10:56 Respiratory Rate 16 01/04/25 10:56 Blood Pressure 135/72 01/04/25 10:56 Pulse Oximetry 98 01/04/25 10:56 Oxygen Delivery Room Air 01/04/25 10:56 Reviewed. MDM - URI/Sore Throat MDM Narrative Medical decision making narrative: Differential diagnosis considered: Crawford virus, strep pharyngitis, allergic rhinitis, upper respiratory tract infection, sinusitis, rhinosinusitis, nasopharyngitis. viral pharyngitis, otitis media, otitis externa, pneumonia, bronchitis, viral cough syndrome, viral syndrome, and influenza. Exam findings show no acute concerns or changes; patient is non-toxic appearing and is in no distress. Patient is appropriate for outpatient treatment and follow-up. Lab Data Attestation: I reviewed the patient's lab results. Critical Care Time Critical Care Time Critical Care Time: No Discharge Plan Discharge Clinical Impression: Upper respiratory infection Patient Disposition: Home, Self-Care Condition: Stable Instructions: Upper Respiratory Infection (ED) Additional Instructions: Your rapid COVID and flu tests are negative Your rapid strep swab was negative today at [facility]. A throat culture will be sent to the laboratory for further testing. If the test is positive, you will receive a phone call within 48 hours and an appropriate antibiotic will be initiated at that time. Your symptoms are likely due to a viral illness, which is not treated with antibiotics. Viral symptoms can be present for up to a few weeks. -Alternate Tylenol and Motrin per package directions for fever or pain. -Antihistamine medication such as Benadryl at night and Zyrtec during the day can help improve symptoms. -Eat and drink things that are easy to swallow, like tea or soup, or popsicles to suck on. -Oral rinses such as: Salt water gargles and/or may use topical anesthetic (eg. Chloraseptic spray) or lozenges to relieve dryness or throat pain). -Frequent hand washing or hand cooling tower operator is one of the best ways to prevent spread of infection. -Follow up with primary care provider in 2-3 days if condition is not improving; or seek ER visit if you have trouble breathing, cannot drink enough fluids, have muffled voice, difficulty opening your mouth, or severe swelling. Patient Language: Tongan Prescriptions: No Action sertraline 50 mg tablet 50 mg PO DAILY albuterol sulfate 2.5 mg /3 mL (0.083 %) solution for nebulization omeprazole 40 mg capsule,delayed release(DR/EC) 40 mg PO DAILY albuterol sulfate 90 mcg/actuation HFA aerosol inhaler 1 puff INHALATION QID PRN (Reason: Wheezing) Dulera 200-5 mcg/actuation HFA aerosol inhaler 1 inh INHALATION BID Follow-up/Referrals: Nubia,SHAWN Gonzalez [Primary Care Provider] - Stand Alone Forms: Work/School Release IP Time of Disposition: 11:50
[2025-01-04 11:43] LABS: EDSTREPNEGPOS1 Negative (Negative)
[2025-01-04 11:47] LABS: EDCOVIDSCREEN Negative (Negative); EDINFLUASCREEN Negative (Negative); EDINFLUBSCREEN Negative (Negative)
== END 2025-01-04 11:55 | disposition home or self-care (01) ==
PROVIDERS: Emergency Provider Nurse Practitioner; PCP Registered Nurse
DX: J06.9 Acute upper respiratory infection, unspecified (principal); Z86.718 Personal history of other venous thrombosis and embolism; J45.909 Unspecified asthma, uncomplicated; Z86.711 Personal history of pulmonary embolism; Z87.891 Personal history of nicotine dependence; Z20.822 Contact with and (suspected) exposure to COVID-19
CPT/HCPCS: 87081; 87426; 87804; 87880; 99213; G0463

== ENCOUNTER 2025-01-11 10:58 | Emergency (ER) | payer OTHER, SELFPAY ==
--- NOTE | 2025-01-11 11:02 | ED.URI ---
HPI - URI/Sore Throat General Chief Complaint: Upper Respiratory Infection Stated Complaint: Sore Throat Time Seen by Provider: 01/11/25 10:59 Source: patient Mode of arrival: ambulatory Limitations: no limitations History of Present Illness HPI Narrative: Sakina is a 69-year-old female patient presenting to the clinic today with complaints of a sore throat for over 1 week. She reports she was here last week for similar symptoms and they have not improved. Denies any fever or chills. Rates pain with swallow and feels as though her throat is swollen MD elicited complaint: sore throat Related Data Home Medications ?Medication ?Instructions ?Recorded ?Confirmed ?Last Taken ?Type albuterol sulfate 90 mcg/actuation 1 puff inhalation QID PRN Wheezing 08/03/20 04/20/24 08/20/20 History aerosol inhaler mometasone-formoterol HFA 200 1 inh inhalation BID 08/03/20 04/20/24 08/20/20 History mcg-5 mcg/actuation aerosol inhaler (Dulera) omeprazole 40 mg capsule,delayed 40 mg PO DAILY 08/03/20 04/20/24 08/20/20 History release sertraline 50 mg tablet 50 mg PO DAILY 04/20/24 04/20/24 Unknown History albuterol sulfate 2.5 mg/3 mL mg 01/04/25 Unknown History (0.083 %) solution for nebulization Allergies Allergy/AdvReac Type Severity Reaction Status Date / Time azithromycin Allergy Mild Rash Verified 01/11/25 11:33 Cephalosporins Allergy Mild HIVES Verified 01/11/25 11:33 erythromycin base Allergy Mild Diarrhea Verified 01/11/25 11:33 Penicillins Allergy Mild Hives / Verified 01/11/25 11:33 Red Face Sulfa (Sulfonamide Allergy Mild Rash Verified 01/11/25 11:33 Antibiotics) tetracycline Allergy Mild Rash Verified 01/11/25 11:33 metoprolol Allergy Anaphylaxis Verified 01/11/25 11:33 verapamil Allergy Hives Verified 01/11/25 11:33 Review of Systems Review of Systems: Pertinent positives per HPI. Patient denies any fever, chills, rash, headache, visual changes, dizziness, cough, shortness of breath, chest pain, palpitations, nausea, vomiting, diarrhea, constipation, abdominal pain, or any urinary issues. 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 DVT (deep venous thrombosis) Pulmonary emboli Asthma Surgical History Surgical History H/O spinal fusion 2018 Hx of cholecystectomy Family History Family History Father Family history of allergic disorder, Onset Age: 85 Mother Family history of Parkinson's disease, Onset Age: 88 Sibling Family history of malignant neoplasm of breast Social History Social History Smoking packs per day: 1 Smoking cigarettes per day: 20.0 Years smoked: 15 Smoking pack-years: 15.00 Smoking status: Former smoker Tobacco type: cigarettes Smoking end date: 12/01/04 Alcohol intake: never Substance use: never Substance use type: does not use Living arrangements: with family Additional living arrangements comments: LIVES WITH SON Gender identity (if verbalized by the patient): Female Spiritual care concerns: No Comments At the time of my signature, I reviewed and agree with the nursing past medical, surgical, social, and family history. There is no relevant family history pertinent to the patient complaint. Exam Narrative: General: Well-developed, well nourished, in no apparent distress Head: Normocephalic, atraumatic Eyes: Pupils equally round and reactive to light bilaterally, EOM intact, sclera and conjunctive clear, no discharge, lids normal Ears: TMs intact and clear, ear canals clear, no drainage, grossly hearing normal. Nose: Nares patent, clear discharge, no inflammation, no sinus tenderness. Mouth: Oral pharynx red with bilateral tonsillar enlargement with exudate without lesions or masses, good dentition, MMM. Neck: Supple, trachea midline, enlargement of anterior cervical nodes, no thyroid masses or goiter palpable. Cardio: Regular rate and rhythm, s1 and s2 normal, no murmur appreciated. Resp: Clear to auscultation bilaterally, no rhonchi, rales, wheezing or rubs Course Course Emergency Course: Portions of this record may have been created with voice recognition software. Level of Care: Express Care Visit Vital Signs Vital signs: Vital Signs Temperature 37.3 C 01/11/25 11:11 Pulse Rate 77 01/11/25 11:11 Respiratory Rate 16 01/11/25 11:11 Blood Pressure 137/74 01/11/25 11:11 Pulse Oximetry 99 01/11/25 11:11 Oxygen Delivery Room Air 01/11/25 11:11 Temperature 37.3 C 01/11/25 11:11 Pulse Rate 77 01/11/25 11:11 Respiratory Rate 16 01/11/25 11:11 Blood Pressure 137/74 01/11/25 11:11 Pulse Oximetry 99 01/11/25 11:11 Oxygen Delivery Room Air 01/11/25 11:11 Vital signs reviewed MDM - URI/Sore Throat MDM Narrative Medical decision making narrative: At the time of visit patient is resting comfortably on the exam table. Patient appears to be nontoxic. Labs: Strep test was negative in the clinic today. We will send strep culture. Plan: Patient has tonsillitis. Prescription for Keflex and prednisone was sent to the pharmacy. Patient reports she is able to take Keflex as she has taken it before without having an allergic reaction. Supportive measures were discussed with the patient and they voiced understanding discharge instructions and agrees to treatment plan. Return precautions reviewed Differential Diagnosis Differential diagnosis: Likely upper respiratory infection, otitis media, sinusitis, viral infection, bronchitis, influenza, pharyngitis and other (COVID) Discharge Plan Discharge Clinical Impression: Acute tonsillitis Qualifiers: Pharyngitis/tonsillitis etiology: unspecified etiology Qualified Code(s): J03.90 - Acute tonsillitis, unspecified Patient Disposition: Home, Self-Care Condition: Stable Instructions: Antibiotic Form, Tonsillitis (ED) Additional Instructions: Take prescription medications only as prescribed-prednisone and Keflex Increase fluids and stay well hydrated Tylenol/motrin for pain/fever Flonase and OTC antihistamines as directed Vicks vapor rub to open sinuses Sinus rinses for congestion Cepacol spray, cough drops, throat lozenges, warm tea with honey/lemon, gargle salt water to soothe throat BRAT diet for diarrhea Clear liquids x 24 hours then advance as tolerated for nausea/vomiting Go to the ED if you develop a worsening in your condition- high fever not controlled by Tylenol or Motrin, dehydration, weakness, lethargy, shortness of breath, or chest pain. Follow up with your PCP in 3-5 days if symptoms persist. Patient Language: Swedish Prescriptions: New prednisone 20 mg tablet 40 mg PO DAILY 5 Days Qty: 10 0RF cephalexin 500 mg tablet 500 mg PO Q12H 10 Days Qty: 20 0RF No Action sertraline 50 mg tablet 50 mg PO DAILY albuterol sulfate 2.5 mg /3 mL (0.083 %) solution for nebulization omeprazole 40 mg capsule,delayed release(DR/EC) 40 mg PO DAILY albuterol sulfate 90 mcg/actuation HFA aerosol inhaler 1 puff INHALATION QID PRN (Reason: Wheezing) Dulera 200-5 mcg/actuation HFA aerosol inhaler 1 inh INHALATION BID Follow-up/Referrals: Nubia,SHAWN Gonzalez [Primary Care Provider] - Stand Alone Forms: Work/School Release IP Time of Disposition: 11:54 Quality NIHSS Nursing Documentation ED NIHSS nursing documentation: reviewed/agree
[2025-01-11 11:11] VITALS: BP 137/74; PULSE 77; RESP 16; TEMP 37.3; O2SAT 99
[2025-01-11 11:54] LABS: EDSTREPNEGPOS1 Negative (Negative)
== END 2025-01-11 11:55 | disposition home or self-care (01) ==
PROVIDERS: Emergency Provider Nurse Practitioner Family; PCP Registered Nurse
DX: J03.90 Acute tonsillitis, unspecified (principal); Z86.711 Personal history of pulmonary embolism; Z85.828 Personal history of other malignant neoplasm of skin; Z87.891 Personal history of nicotine dependence
CPT/HCPCS: 87880; 99213; G0463

== ENCOUNTER 2025-07-21 10:09 | Outpatient (CLI) | payer OTHER, SELFPAY ==
--- NOTE | ~2025-07-21 | DEXA_ITS ---
Bone Density Report Name: BYRON EVANS Age: 69 Sex: Female Ethnicity: White Date of : 1955 Indication: osteopenia; parental hip fracture; asthma or emphysema; Referring Provider: JOSÉ MIGUEL TEAGUE Study: Bone densitometry was performed. Exam Date: July 21, 2025 Accession number: [id number] Bone Density: Region BMD T-score Z-score Classification AP Spine(L1, L2, L3) 0.836 -1.7 0.3 Osteopenia Femoral Neck (Left) 0.649 -1.8 -0.1 Osteopenia Total Hip (Left) 0.827 -0.9 0.4 Normal Femoral Neck (Right) 0.601 -2.2 -0.6 Osteopenia Total Hip (Right) 0.801 -1.2 0.2 Osteopenia Total Hip Mean 0.814 -1.1 0.3 Osteopenia World Health Organization criteria for BMD impression classify patients as: Normal (T-score at or above -1.0), Osteopenia (T-score between -1.0 and -2.5), or Osteoporosis (T-score at or below -2.5). 10-year Fracture Risk(1): Major Osteoporotic Fracture 18% Hip Fracture 2.8% Reported Risk Factors: [place] (), Neck BMD=0.601, BMI=39.0, parental fracture (1) FRAX(R) Version 3.08. Fracture probability calculated for an untreated patient. Fracture probability may be lower if the patient has received treatment. Previous Exams: -- Region Exam Age BMD T-score BMD Change BMD Change Date g/cm2 vs Baseline vs Previous -- AP Spine (L1-L3) 07/21/2025 69 0.836 -1.7 -5.6%# -5.6%# 02/04/2022 66 0.886 -1.2 Total Hip(Left) 07/21/2025 69 0.827 -0.9 -4.5%# -4.5%# 02/04/2022 66 0.866 -0.6 Total Hip(Right) 07/21/2025 69 0.801 -1.2 -1.5%# -1.5%# 02/04/2022 66 0.813 -1.1 -- *Denotes significance at 95% confidence level, LSC for AP Spine = 0.022 g/cm2, LSC for Total Hip = 0.027 g/cm2 # Denotes dissimilar scan types or analysis methods Clinical Information Provided by Patient: Parent has had a hip fracture Has used the following medications: Vitamin D, Calcium Has the following medical conditions: Asthma or Emphysema Patient maximum height was 66 Menopause Age: 59 Onset of menses at age 15 Number of children 1 Impression: The patient has low bone mass, based on the Right Femoral Neck T-score. The patient has an estimated ten-year risk of hip fracture of 2.8% and an estimated ten-year risk of major fracture of 18%, based on the WHO FRAX algorithm. The patient has risk factors, including: parental hip fracture. Unable to evaluate interval change due to the use of different scan modes. Discussion: BONE DENSITY IS LOW AT ONE OR MORE SKELETAL SITES. This patient's lowest T-score is low at one or more skeletal sites. It meets the World Health Organization's (WHO) criteria for ?low bone mass? (T-score between -1.0 and -2.5). The patient's 10-year risk of fracture as calculated by FRAX is less than the threshold where pharmacological therapy is recommended by the National Osteoporosis Foundation (NOF). However, all treatment decisions require clinical judgment and consideration of individual patient factors, including patient preferences, comorbidities, previous drug use, risk factors not captured in the FRAX model (e.g., frailty, falls, vitamin D deficiency, increased bone turnover, interval significant decline in bone density) and possible under or overestimation of fracture risk by FRAX. The patient should follow a healthful lifestyle (good nutrition with adequate calcium and vitamin D, and appropriate weight-bearing exercise). Follow-Up: Consider repeating this study in 2 to 3 years to reassess this patient's status, or sooner if there is some new clinical indication. Reported by: GENI on 07/21/2025 10:50:00 AM. Reviewed, dictated and finalized at location A.
== END 2025-07-21 10:10 | disposition home or self-care (01) ==
LOC: MICIMG 10:11
PROVIDERS: PCP Registered Nurse; Visit Provider Obstetrics & Gynecology
DX: N95.1 Menopausal and female climacteric states (principal); M85.88 Other specified disorders of bone density and structure, other site; M85.852 Other specified disorders of bone density and structure, left thigh; M85.851 Other specified disorders of bone density and structure, right thigh
CPT/HCPCS: 77080

== ENCOUNTER 2025-08-15 12:27 | Outpatient (CLI) | payer OTHER, SELFPAY ==
--- NOTE | ~2025-08-15 | MM_ITS ---
EXAMINATION: MM screening tam BI w winston HISTORY: Screening TECHNIQUE: Craniocaudal and mediolateral oblique 3-D tomosynthesis images were obtained and synthetic 2-D images were generated. CAD analysis was submitted and interpreted. COMPARISON: 03/23/2024 BREAST PARENCHYMAL COMPOSITION: There are scattered areas of fibroglandular density. FINDINGS: There is no evidence of suspicious mass, calcification, or architectural distortion to suggest malignancy. There has been no suspicious interval change. IMPRESSION: 1. No mammographic evidence of malignancy. Recommend routine screening mammography in one year. BI-RADS Category 2: Benign finding(s) Reviewed, dictated and finalized at location Q. IMPRESSION: 1. No mammographic evidence of malignancy. Recommend routine screening mammogra phy in one year. BI-RADS Category 2: Benign finding(s)
== END 2025-08-15 12:28 | disposition home or self-care (01) ==
LOC: MICIMG 12:27
PROVIDERS: PCP Registered Nurse; Visit Provider Obstetrics & Gynecology
DX: Z12.31 Encounter for screening mammogram for malignant neoplasm of breast (principal)
CPT/HCPCS: 77063; 77067